=== PATIENT | male | born 1935 | race Caucasian/White ===

== ENCOUNTER 2021-01-20 12:03 | Observation (INO) | payer MEDICARE, SELFPAY ==
[2021-01-20 12:03] VITALS: BP 130/70; PULSE 101; RESP 16; TEMP 36.2; O2SAT 97; BMI 38.6
--- NOTE | 2021-01-20 12:16 | CM.ED ---
SW Note SW received call Raymundo Mariscal from [facility] in [place]. Raymundo said that patient is being treated for CDiff and MRSA. He reports that they can not do IV antibiotics. Raymundo said that patient will need to go somewhere like [place] for the longterm antibiotics. Niece, Neema Thompson resides in [place]. Niece phone number [phone] and [phone]. Stephenie CONNOR
--- NOTE | 2021-01-20 12:44 | ED.VIS.GI ---
HPI HPI - GI History of Present Illness Chief Complaint: Diarrhea Informant: patient and SNF Abdominal Pain/Flank Pain Onset: Days Context: Gradual Onset Timing: Intermittent Current Severity: Mild Maximum Severity: Mild Nausea/Vomiting/Emesis GI Symptom: Negative for Nausea and Vomiting Diarrhea/Melena/Hematochezia GI Symptom: Positive for Diarrhea; Negative for Melena and Hematochezia Onset: Days Stool Quality: Positive for Loose Severity: Mild Associated Symptoms Associated Symptoms: Negative for Dysuria and Frequency Narrative Narrative: 85-year-old male from an assisted living facility. According to the paperwork patient was recently admitted to [facility]. Was discharged back to her facility. Was having diarrhea and was eventually diagnosed with C. difficile. He was then recently taken back to [facility] emergency department was treated with IV fluids and placed on oral vancomycin. The assisted living facility does not feel that they can care for him and according to them the family wants the patient to be seen in a different facility than [facility] that is why was sent here today. Reportedly the assisted living facility called our psychiatric social worker supervisor discussed with her that they did not feel comfortable caring for him and thought he would need higher level of placement in a different facility Prior similar symptoms: Yes Recent Illness/Hospitalization: Yes PFSH PFSH Medical History BPH (benign prostatic hyperplasia) Diabetes HTN (hypertension) Allergy/AdvReac Type Severity Reaction Status Date / Time codeine Allergy PT UNSURE Verified 01/20/21 12:12 OF REACTION Social History Smoking Status: Never smoker ROS ROS ED ROS Narrative Diarrhea. Review of Systems ROS Unobtainable: Denies due to encephalopathy Constitutional Constitutional ED: Denies fever(s) or subjective ENT ENT ED: Denies ear pain or sore throat Cardiovascular Cardiovascular: Denies chest pain or palpitations Respiratory/Chest Respiratory/Chest: Denies cough or dyspnea Gastrointestinal Gastrointestinal: Reports diarrhea; Denies abdominal pain, nausea or vomiting Genitourinary Genitourinary ED: Denies dysuria or hematuria Musculoskeletal Musculoskeletal: Denies arthralgias or myalgias Integumentary Denies abscess or rash Neurologic Neurologic: Denies headache(s) Psychiatric Psychiatric: Denies depression Endocrine Endocrinology: Denies polyuria Hematologic/Lymphatic Hematologic/Lymphatic: Denies easy bruising Allergic/Immunologic Allergic/Immunologic ED: Denies urticaria EXAM Physical Exam Narrative Exam Narrative: 85-year-old male no acute distress currently he is sitting on the toilet when I walk in the room. He denies any complaints. H EENT exam unremarkable. Moist remembers. Neck nontender. Lungs clear to auscultation. Heart regular rhythm rate about 100. Abdomen soft nontender normal bowel sounds no peritoneal signs. Obese. Moving all 4 extremities. No edema. Neurologically is awake and alert. Answering questions following commands. Const Vital Signs: 01/20/21 12:03 01/20/21 13:22 01/20/21 14:24 Temperature 97.2 F L 97.5 F L 99.2 F H Temperature Source Oral Temporal Oral Pulse Rate 101 H 73 77 Respiratory Rate 16 24 H 18 Blood Pressure 130/70 H 126/104 H 110/51 L Blood Pressure Mean 90 111 70 Pulse Ox 97 97 97 Oxygen Delivery Method Nasal Cannula Nasal Cannula Room Air Oxygen Flow Rate (L/min) 2 2 Positive well nourished, well developed and obese; Negative for cachectic, contractures or unkempt General Appearance ED: well developed and NAD; Negative for unkempt, cachectic, contractures or pallor Nutritional Appearance: obese; Negative for cachectic HEENT Reports moist mucous membranes normocephalic and atraumatic; Negative for trauma or tenderness Eyes PERRL and EOMs intact bilaterally General Eye ED: Negative for pale conjunctiva or scleral icterus Neck no lymphadenopathy, supple and no JVD General: Negative for tenderness Resp normal respiratory effort and clear to auscultation bilaterally Auscultation: Negative for rales, rhonchi or wheezes Cardio regular rate, regular rhythm, S1 normal heart sound, S2 normal heart sound and no murmurs GI non-tender, non-distended and no masses Auscultation: normoactive bowel sounds Palpation: soft; Negative for tender, guarding or rigid Back/Spine no CVA tenderness General Back: Negative for CVA tenderness Cervical Spine: Negative for cervical spine tenderness Extremity full ROM General Extremety ED: Negative for edema or tenderness General Extremity: Negative for edema Neuro moves all extremities Sensorium / Orientation: alert, oriented to person, oriented to place and oriented to time; Negative for orientation impaired, confused, lethargic or stuporous Motor Exam: strength 5/5 throughout Psych mental status grossly normal Appearance: Negative for unkempt Skin no wounds General Skin Exam: Negative for jaundice or pallor Lesions: no lesions Rashes: no rashes MDM MDM MDM Narrative Medical decision making narrative: Elderly male recent C. difficile sent in from assisted living facility for further evaluation and admission. Patient be treated with IV fluids. Screening labs are being obtained. Repeat exam unchanged at 3:35 PM. The hospitalist is on page. Lab Data Attestation: I reviewed the patient's lab results. Lab results narrative: CBC shows a white count of 15.7 hemoglobin of 11. Platelet count of 259. Electrolytes show a gap of 7 BUN of 36 creatinine 1.77. We do not have a recent creatinine to compare that to. The hemoglobin is baseline. Labs: Laboratory Results - last 24 hr 01/20/21 01/20/21 13:15 13:15 WBC 15.7 H RBC 3.57 L Hgb 11.0 L Hct 33.2 L MCV 93.0 MCH 30.8 MCHC 33.1 RDW Std Deviation 59.8 H RDW Coeff of Trina 17.2 H Plt Count 259 MPV 10.6 Immature Gran % (Auto) 1.700 H Neut % (Auto) 87.0 H Lymph % (Auto) 4.0 L [place] % (Auto) 6.5 Eos % (Auto) 0.5 Baso % (Auto) 0.3 Absolute Neuts (auto) 13.7 H Absolute Lymphs (auto) 0.62 L Nucleated RBC % 0 Sodium 135 L Potassium 4.6 Chloride 105 Carbon Dioxide 23.0 Anion Gap 7 BUN 36 H Creatinine 1.77 H Estim Creat Clear Calc 34.71 Est GFR (MDRD) Af Amer 47 L Est GFR (MDRD) Non-Af 39 L BUN/Creatinine Ratio 20.3 H Glucose 161 H Calcium 8.2 L Total Bilirubin 0.50 AST 25 ALT 13 L Alkaline Phosphatase 138 H Total Protein 5.5 L Albumin 1.6 L Globulin 3.9 Albumin/Globulin Ratio 0.4 L Discharge Plan Triage Chief Complaint: Diarrhea ED Provider: Abdias Cr Dx/Rx/DC Orders Clinical Impression: C. difficile diarrhea, Acute kidney injury, History of atrial fibrillation, History of diabetes mellitus Primary Care Provider: Dangelo Yadav Referrals: Dangelo Yadav MD [Primary Care Provider] - Disposition Disposition: Acute Care Hospital [facility]
[2021-01-20] MEDS: 0.9% Normal Saline 1,000 ML 999 ML IV (13:20)
[2021-01-20 13:22] VITALS: BP 126/104; PULSE 73; RESP 24; TEMP 36.4; O2SAT 97
[2021-01-20 13:29] LABS: Absolute Lymphocyte Count 0.62 X10^3/uL (0.83-4.51); Absolute Neutrophil Count 13.7 X10^3/uL (2.0-7.7); Basophil# 0.04 X10^3/uL; Basophil% 0.3 % (0-1); Eosinophil# 0.08 X10^3/uL; Eosinophils% 0.5 % (0-5); Hematocrit 33.2 % (40-54); Lymphocyte # 0.62 X10^3/ul (0.83-4.51); Mean Corp Hgb Conc 33.1 g/dL (32-36); Mean Corpuscular Hgb 30.8 pg (27.0-32.0); Mean Platelet Vol. 10.6 fl (6.2-12.0); Monocyte# 1.02 X10^3/uL; Monocyte% 6.5 % (0-10); NRBC Flagged by Analyzer 0 % (0-5); Neutrophil # 13.65 X10^3/uL (2.7-7.7); Platelet Count 259 K/mm3 (150-450); RBC Distribution Width CV 17.2 % (11.6-14.6); RBC Distribution Width SD 59.8 fl (35.1-43.9); Red Blood Count 3.57 M/mm3 (4.6-6.2); White Blood Count 15.7 K/mm3 (4.4-11.0)
[2021-01-20 13:44] LABS: ALB/GLOB Ratio 0.4 RATIO (0.9-2.4); AST(SGOT) 25 U/L (15-37); Alanine Aminotransfer ALT/SGPT 13 U/L (16-61); Albumin, Serum 1.6 g/dL (3.2-5.0); Alkaline Phosphatase 138 U/L (45-117); Anion Gap 7 (5-15); BUN 36 mg/dL (7-18); BUN/Creat Ratio 20.3 RATIO (10-20); Calcium,Total 8.2 mg/dL (8.5-10.1); Chloride 105 mmol/L (98-107); Creatinine, Serum 1.77 mg/dL (0.70-1.30); EST Glomerular Filtration Rate 39 mL/min (>60); Est Glom Filt Rate - Afr Amer 47 mL/min (>60); Estimated Creatinine Clearance 34.71 ml/min; Globulin 3.9 g/dL (2.2-4.2); Glucose 161 mg/dL (74-106); Potassium 4.6 mmol/L (3.5-5.1); Protein, Total 5.5 g/dL (6.4-8.2); Sodium Level 135 mmol/L (136-145)
[2021-01-20 14:24] VITALS: BP 110/51; PULSE 77; RESP 18; TEMP 37.3; O2SAT 97
--- NOTE | 2021-01-20 16:23 | PCM.HP.STD ---
Documented by User: SILVIANO León 01/20/21 16:50 HPI - General General Date of Admission: 01/20/21 Date of Service: 01/20/21 Chief Complaint: Diarrhea, weakness HPI Narrative AYAN SANTANA, is a 85 M who presents with complaints of increased weakness and continued diarrhea. Patient was diagnosed with MRSA in his urine on December 20 and was subsequently treated with antibiotics. Shortly after initiating antibiotic therapy for his MRSA infection patient began to have diarrhea. On January 17 patient was diagnosed with C. difficile and began treatment with vancomycin. Patient is having considerable weakness and assisted living is no longer able to provide care for him at this time. She was initially treated at [facility] but family wanted him sent to [place] for second opinion. Patient also has history of CHF, hyperlipidemia, atrial fibrillation and gout [facility] Medical History BPH (benign prostatic hyperplasia) Diabetes HTN (hypertension) Home Medications allopurinol 300 mg PO DAILY 01/20/21 [History Last Taken 01/20/21] aspirin [Aspirin Low Dose] 81 mg PO DAILY@0800 01/20/21 [History Last Taken 01/20/21] atorvastatin 40 mg PO QHS@2100 01/20/21 [History Last Taken 01/19/21] bumetanide 1 mg PO BID 01/20/21 [History Last Taken 01/20/21] calcitriol 0.25 mcg PO DAILY 01/20/21 [History Last Taken 01/20/21] doxazosin 2 mg PO QHS@2100 01/20/21 [History Last Taken 01/19/21] ergocalciferol (vitamin D2) 1,250 mcg PO TU 01/20/21 [History Last Taken 01/20/21] ferrous sulfate 325 mg PO DAILY@1500 01/20/21 [History Last Taken 01/19/21] guaifenesin [Mucus Relief] 400 mg PO BID 01/20/21 [History Last Taken 01/20/21] magnesium oxide 400 mg PO DAILY 01/20/21 [History Last Taken 01/20/21] metoprolol succinate 25 mg PO DAILY 01/20/21 [History Last Taken 01/20/21] potassium chloride 40 meq PO BID 01/20/21 [History Last Taken 01/20/21] vancomycin 125 mg PO 4X/DAY 01/20/21 [History Last Taken 01/20/21] warfarin 4 mg PO SUMOWEFRSA 01/20/21 [History Last Taken 01/19/21] warfarin 6 mg PO TUTH 01/20/21 [History Last Taken 01/15/21] Allergy/AdvReac Type Severity Reaction Status Date / Time codeine Allergy PT UNSURE Verified 01/20/21 12:12 OF REACTION Social History (Updated 01/20/21 @ 16:25 by Zainab Gongora NP-C) Smoking Status: Never smoker alcohol intake: never substance use type: does not use ROS Constitutional Constitutional: Reports weakness; Denies anorexia, chills, fatigue, fever(s) or malaise Cardiovascular Cardiovascular: Denies chest pain, edema, palpitations or syncope Respiratory/Chest Respiratory/Chest: Denies cough, hemoptysis, shortness of breath at rest, shortness of breath with exertion or wheezing Gastrointestinal Gastrointestinal: Reports diarrhea; Denies abdominal pain, constipation, nausea or vomiting Genitourinary Genitourinary: Denies dysuria Musculoskeletal Musculoskeletal: Denies back pain, extremity pain, joint pain or joint stiffness Integumentary Integumentary: Denies dry skin Neurologic Neurologic: Denies abnormal gait, abnormal speech, confusion or dizziness Psychiatric Psychiatric: Denies anxiety or depression Endocrine Endocrinology: Denies change in body appearance Hematologic/Lymphatic Hematologic/Lymphatic: Denies anemia Vital Signs Vital Signs Vital Signs: 01/20/21 12:03 01/20/21 13:22 01/20/21 14:24 Temperature 97.2 F L 97.5 F L 99.2 F H Temperature Source Oral Temporal Oral Pulse Rate 101 H 73 77 Respiratory Rate 16 24 H 18 Blood Pressure 130/70 H 126/104 H 110/51 L Blood Pressure Mean 90 111 70 Pulse Ox 97 97 97 Oxygen Delivery Method Nasal Cannula Nasal Cannula Room Air Oxygen Flow Rate (L/min) 2 2 Weight Weight: 284 lb 14.4 oz Body Mass Index (BMI) 38.6 Physical Exam Const alert, oriented x3 and no apparent distress General Appearance: cooperative HEENT normocephalic and head/scalp atraumatic Eyes conjunctivae normal and no scleral icterus Neck full ROM and supple General: trachea midline Resp normal respiratory effort, normal air movement and clear to auscultation bilaterally Cardio regular rate, S1 normal heart sound, S2 normal heart sound and peripheral pulses 2+ throughout GI soft to palpation, non-tender and non-distended Auscultation: hyperactive bowel sounds Extremity normal capillary refill and no clubbing, cyanosis or edema General Extremity: no tenderness to palpation of joints or extremities Skin General Skin Exam: no breakdown and turgor normal Lesions: no lesions Rashes: no rashes Neuro no focal motor deficits and no sensory deficits noted Speech: speech normal Motor Exam: general weakness Psych thought process normal, cooperative and affect normal Appearance: appropriate Results Lab / Micro Data Result Diagrams: 01/20/21 13:15 01/20/21 13:15 Labs: Laboratory Results - last 24 hr 01/20/21 13:15: WBC 15.7 H, RBC 3.57 L, Hgb 11.0 L, Hct 33.2 L, MCV 93.0, MCH 30.8, MCHC 33.1, RDW Std Deviation 59.8 H, RDW Coeff of Trina 17.2 H, Plt Count 259, MPV 10.6, Immature Gran % (Auto) 1.700 H, Neut % (Auto) 87.0 H, Lymph % (Auto) 4.0 L, [place] % (Auto) 6.5, Eos % (Auto) 0.5, Baso % (Auto) 0.3, Absolute Neuts (auto) 13.7 H, Absolute Lymphs (auto) 0.62 L, Nucleated RBC % 0 01/20/21 13:15: Sodium 135 L, Potassium 4.6, Chloride 105, Carbon Dioxide 23.0, Anion Gap 7, BUN 36 H, Creatinine 1.77 H, Estim Creat Clear Calc 34.71, Est GFR (MDRD) Af Amer 47 L, Est GFR (MDRD) Non-Af 39 L, BUN/Creatinine Ratio 20.3 H, Glucose 161 H, Calcium 8.2 L, Total Bilirubin 0.50, AST 25, ALT 13 L, Alkaline Phosphatase 138 H, Total Protein 5.5 L, Albumin 1.6 L, Globulin 3.9, Albumin/Globulin Ratio 0.4 L Assessment & Plan Assessment/Plan (1) C. difficile diarrhea: (2) History of atrial fibrillation: PLAN: 1. C. difficile diarrhea -Admit to [facility] -Continue vancomycin 125 mg p.o. 4 times a day -Normal saline 75 mL/h -C diff precautions ordered 2. Weakness -PT and OT to eval and treat -Case management consulted for assistance with ECF placement 3. Atrial fibrillation -Rate controlled, continue metoprolol and Coumadin -Will obtain PT/INR 4. Chronic kidney disease stage IIIb -Creatinine 1.77, upon review of labs from [facility] consistent with baseline -Daily BMP, will trend Patient will be continued on all other chronic medications related to chronic diseases including BPH, congestive heart failure, hyperlipidemia, gout DVT prophylaxis-chronically anticoagulated This patient was seen by SILVIANO León under the supervision of Dr. Cardona. Documented by User: Dr. Toney Cardona, 01/20/21 17:05 HPI - General General Date of Admission: 01/20/21 [facility] Medical History BPH (benign prostatic hyperplasia) Diabetes HTN (hypertension) Home Medications allopurinol 300 mg PO DAILY 01/20/21 [History Last Taken 01/20/21] aspirin [Aspirin Low Dose] 81 mg PO DAILY@0800 01/20/21 [History Last Taken 01/20/21] atorvastatin 40 mg PO QHS@2100 01/20/21 [History Last Taken 01/19/21] bumetanide 1 mg PO BID 01/20/21 [History Last Taken 01/20/21] calcitriol 0.25 mcg PO DAILY 01/20/21 [History Last Taken 01/20/21] doxazosin 2 mg PO QHS@2100 01/20/21 [History Last Taken 01/19/21] ergocalciferol (vitamin D2) 1,250 mcg PO TU 01/20/21 [History Last Taken 01/20/21] ferrous sulfate 325 mg PO DAILY@1500 01/20/21 [History Last Taken 01/19/21] guaifenesin [Mucus Relief] 400 mg PO BID 01/20/21 [History Last Taken 01/20/21] magnesium oxide 400 mg PO DAILY 01/20/21 [History Last Taken 01/20/21] metoprolol succinate 25 mg PO DAILY 01/20/21 [History Last Taken 01/20/21] potassium chloride 40 meq PO BID 01/20/21 [History Last Taken 01/20/21] vancomycin 125 mg PO 4X/DAY 01/20/21 [History Last Taken 01/20/21] warfarin 4 mg PO SUMOWEFRSA 01/20/21 [History Last Taken 01/19/21] warfarin 6 mg PO TUTH 01/20/21 [History Last Taken 01/15/21] Allergy/AdvReac Type Severity Reaction Status Date / Time codeine Allergy PT UNSURE Verified 01/20/21 12:12 OF REACTION Social History (Updated 01/20/21 @ 16:25 by Zainab Gongora, [employer]-C) Smoking Status: Never smoker alcohol intake: never substance use type: does not use Results Lab / Micro Data Result Diagrams: 01/20/21 13:15 01/20/21 13:15 Charges/Coding Addendum Addendum: Patient was seen and examined independently of Stacie Gongora today, he was sent to the emergency room today at [facility] from an assisted living facility at which she resides due to generalized debility and known C. difficile colitis. Patient has been weak at the facility and is unable to care for himself, the facility states that they are unable to provide further care for him there. On examination he appeared in good health and spirits. Vital signs as documented. Skin warm and dry and without overt rashes. Neck without JVD, neck was supple, trachea midline, thyroid was normal. Lungs clear bilaterally, normal air movement was noted. Heart exam notable for irregular rhythm, normal sounds and absence of murmurs, rubs or gallops. Abdomen unremarkable and without evidence of organomegaly, masses, or abdominal aortic enlargement. Bowel sounds are present, abdomen is not distended. Extremities nonedematous, no cyanosis was noted, no clubbing was noted. Neuro: Cranial nerves II through XII are grossly intact, no focal motor deficits were noted, sensation to light touch and pinprick intact, motor exam 5/5 throughout. Psych: Patient is alert and oriented x3, he does not appear anxious or depressed, he does not appear agitated. Patient's white blood cell count is elevated, his creatinine is elevated but it appears that this is his baseline creatinine. Patient will be placed in observation status on MedSurg 3, p.o. vancomycin will be continued for the patient C. difficile colitis, he will be given IV fluids, his home medications will be continued with the exception the Bumex, potassium, and magnesium which I have stopped at this time. Patient will be given IV fluids at 75 cc an hour, repeat labs will be obtained, patient will be seen by PT and OT, he will need placement in a halfway facility. I have reviewed Stacie Gongora's history and physical including her medical assessment and plan of care and endorse it. Visit Charges OBSV E&M: 79866 Initial observation care L3
--- NOTE | 2021-01-20 17:36 | NURSING ---
MED SURG SARITA CDIFF, MARIBELL, LEUKOCYTOSIS
[2021-01-20 18:39] LABS: International Normalized Ratio 4.7; Prothrombin Time (Protime)PT. 43.5 SECONDS (11.7-14.9)
[2021-01-20 19:02] VITALS: BP 110/51; PULSE 77; RESP 18; TEMP 37.3; O2SAT 97
[2021-01-20 20:07] VITALS: BP 119/70; PULSE 79; RESP 18; TEMP 36.6; O2SAT 100; BMI 36.3
[2021-01-20] MEDS: 0.9% Normal Saline 1,000 ML 75 ML IV (23:16)
[2021-01-20] MEDS: Atorvastatin Calcium 40 MG Tablet PO (23:17)
[2021-01-20] MEDS: Vancomycin 125 MG/5 ML Susp PO.SYRINGE PO (23:17)
[2021-01-20 23:20] VITALS: BP 116/55; PULSE 85; RESP 18; TEMP 36.8; O2SAT 99
--- NOTE | 2021-01-20 23:28 | PCS.PANDOC ---
PANDEMIC DOCUMENTATION INITIATED: Date: 10/27/2020 Time: 190
--- NOTE | 2021-01-20 23:28 | NURSING ---
pt cannot recall vaccine dates but states that he received both covid vaccines. states [facility] all that information
[2021-01-21 06:00] VITALS: BP 112/65; PULSE 80; RESP 16; TEMP 36.8; O2SAT 95
[2021-01-21 07:20] LABS: Absolute Lymphocyte Count 0.62 X10^3/uL (0.83-4.51); Absolute Neutrophil Count 10.3 X10^3/uL (2.0-7.7); Basophil# 0.03 X10^3/uL; Basophil% 0.2 % (0-1); Eosinophil# 0.16 X10^3/uL; Eosinophils% 1.3 % (0-5); Hematocrit 31.1 % (40-54); Hemoglobin 10.1 g/dL (13.0-16.5); Lymphocyte # 0.62 X10^3/ul (0.83-4.51); Mean Corp Hgb Conc 32.5 g/dL (32-36); Mean Corpuscular Hgb 30.2 pg (27.0-32.0); Mean Corpuscular Volume 93.1 fL (80-94); Mean Platelet Vol. 12.3 fl (6.2-12.0); Monocyte# 0.81 X10^3/uL; Monocyte% 6.6 % (0-10); NRBC Flagged by Analyzer 0 % (0-5); Neutrophil # 10.34 X10^3/uL (2.7-7.7); Neutrophil % 84.3 % (47-70); Platelet Count 166 K/mm3 (150-450); RBC Distribution Width CV 17.1 % (11.6-14.6); RBC Distribution Width SD 59.2 fl (35.1-43.9); Red Blood Count 3.34 M/mm3 (4.6-6.2); White Blood Count 12.3 K/mm3 (4.4-11.0)
[2021-01-21 07:46] LABS: Anion Gap 6 (5-15); BUN 32 mg/dL (7-18); BUN/Creat Ratio 22.4 RATIO (10-20); Calcium,Total 7.8 mg/dL (8.5-10.1); Chloride 107 mmol/L (98-107); Creatinine, Serum 1.43 mg/dL (0.70-1.30); EST Glomerular Filtration Rate 50 mL/min (>60); Est Glom Filt Rate - Afr Amer 61 mL/min (>60); Estimated Creatinine Clearance 42.96 ml/min; Glucose 139 mg/dL (74-106); Potassium 4.3 mmol/L (3.5-5.1); Sodium Level 136 mmol/L (136-145)
[2021-01-21] MEDS: Calcitriol 0.25 MCG Capsule PO (09:04)
[2021-01-21] MEDS: Allopurinol 300 MG Tablet PO (09:04)
[2021-01-21] MEDS: Aspirin E.C. 81 MG Tablet PO (09:04)
[2021-01-21] MEDS: Menthol/Lanolin/Calamine/Znox 113 GM Tube 1 APPLIC TOPICAL ×4 (09:04→22:59)
[2021-01-21 09:14] VITALS: PULSE 86
[2021-01-21] MEDS: Metoprolol(XL)Succ 25 MG Tablet PO (09:14)
[2021-01-21 09:45] VITALS: BP 138/77; PULSE 86; RESP 18; TEMP 36.7; O2SAT 96
[2021-01-21] MEDS: Vancomycin 125 MG/5 ML Susp PO.SYRINGE PO ×4 (10:08→22:59)
--- NOTE | 2021-01-21 10:21 | PCM.PN.HOSP ---
Documented by User: Zainab Gongora NP-C 01/21/21 10:29 Subjective Subjective Patient seen and examined. Patient sitting in chair no distress noted. Patient states that he is feeling slightly better than last night when I evaluated him in the ER. Objective Data Objective Data Vital Signs: Vital Signs Temp Pulse Resp BP Pulse Ox 98.2 F 86 16 112/65 95 01/21/21 06:00 01/21/21 09:14 01/21/21 06:00 01/21/21 06:00 01/21/21 06:00 Oxygen Flow Rate (L/min) 2 Oxygen Delivery Method Room Air Weight: 268 lb 1.6 oz Body Mass Index (BMI) 36.3 Intake & Output: Intake and Output for Last 24 Hours 01/19/21 01/20/21 01/21/21 23:59 23:59 23:59 Intake Total 1000 / 1000 50 / 50 Balance 1000 / 1000 50 / 50 Lab / Micro Data Result Diagrams: 01/21/21 07:00 01/21/21 07:00 Labs: Laboratory Results - last 24 hr 01/20/21 13:15: WBC 15.7 H, RBC 3.57 L, Hgb 11.0 L, Hct 33.2 L, MCV 93.0, MCH 30.8, MCHC 33.1, RDW Std Deviation 59.8 H, RDW Coeff of Trina 17.2 H, Plt Count 259, MPV 10.6, Immature Gran % (Auto) 1.700 H, Neut % (Auto) 87.0 H, Lymph % (Auto) 4.0 L, [place] % (Auto) 6.5, Eos % (Auto) 0.5, Baso % (Auto) 0.3, Absolute Neuts (auto) 13.7 H, Absolute Lymphs (auto) 0.62 L, Nucleated RBC % 0 01/20/21 13:15: Sodium 135 L, Potassium 4.6, Chloride 105, Carbon Dioxide 23.0, Anion Gap 7, BUN 36 H, Creatinine 1.77 H, Estim Creat Clear Calc 34.71, Est GFR (MDRD) Af Amer 47 L, Est GFR (MDRD) Non-Af 39 L, BUN/Creatinine Ratio 20.3 H, Glucose 161 H, Calcium 8.2 L, Total Bilirubin 0.50, AST 25, ALT 13 L, Alkaline Phosphatase 138 H, Total Protein 5.5 L, Albumin 1.6 L, Globulin 3.9, Albumin/Globulin Ratio 0.4 L 01/20/21 18:11: PT 43.5 H, INR 4.7 H* 01/21/21 07:00: WBC 12.3 H, RBC 3.34 L, Hgb 10.1 L, Hct 31.1 L, MCV 93.1, MCH 30.2, MCHC 32.5, RDW Std Deviation 59.2 H, RDW Coeff of Trina 17.1 H, Plt Count 166, MPV 12.3 H, Immature Gran % (Auto) 2.600 H, Neut % (Auto) 84.3 H, Lymph % (Auto) 5.0 L, [place] % (Auto) 6.6, Eos % (Auto) 1.3, Baso % (Auto) 0.2, Absolute Neuts (auto) 10.3 H, Absolute Lymphs (auto) 0.62 L, Nucleated RBC % 0 01/21/21 07:00: Sodium 136, Potassium 4.3, Chloride 107, Carbon Dioxide 23.0, Anion Gap 6, BUN 32 H, Creatinine 1.43 H, Estim Creat Clear Calc 42.96, Est GFR (MDRD) Af Amer 61, Est GFR (MDRD) Non-Af 50 L, BUN/Creatinine Ratio 22.4 H, Glucose 139 H, Calcium 7.8 L Physical Exam Const alert, oriented x3 and no apparent distress General Appearance: cooperative HEENT normocephalic and head/scalp atraumatic Eyes conjunctivae normal and no scleral icterus Neck full ROM and supple General: trachea midline Resp normal respiratory effort, normal air movement and clear to auscultation bilaterally Cardio regular rate, S1 normal heart sound, S2 normal heart sound and peripheral pulses 2+ throughout GI soft to palpation, non-tender and non-distended Auscultation: hyperactive bowel sounds Extremity normal capillary refill and no clubbing, cyanosis or edema General Extremity: no tenderness to palpation of joints or extremities Skin General Skin Exam: no breakdown and turgor normal Lesions: no lesions Rashes: no rashes Neuro no focal motor deficits and no sensory deficits noted Speech: speech normal Motor Exam: general weakness Psych thought process normal, cooperative and affect normal Appearance: appropriate Assessment & Plan Assessment/Plan (1) C. difficile diarrhea: (2) History of atrial fibrillation: PLAN: 1. C. difficile diarrhea -Continue vancomycin 125 mg p.o. 4 times a day, white blood cell count improved from yesterday -Normal saline 75 mL/h -C diff precautions ordered 2. Weakness -PT and OT to eval and treat -Case management consulted for assistance with ECF placement 3. Atrial fibrillation -Rate controlled, continue metoprolol -We will hold Coumadin as patient's current INR is 4.7 -Will obtain PT/INR daily 4. Chronic kidney disease stage IIIb -Creatinine 1.43, improved -Daily BMP, will trend Patient will be continued on all other chronic medications related to chronic diseases including BPH, congestive heart failure, hyperlipidemia, gout DVT prophylaxis-chronically anticoagulated This patient was seen by SILVIANO León under the supervision of Dr. Presley. Documented by User: Dr. Brandt Presley MD 01/21/21 13:40 Objective Data Lab / Micro Data Result Diagrams: 01/21/21 07:00 01/21/21 07:00 Charges/Coding Addendum Addendum: Dr. Presley: I personally reviewed the chart and examined the patient, and agree with the above findings. 85-year-old male with weakness and inability to complete ADLs at home. He was recently diagnosed with C. difficile diarrhea and has been getting oral vancomycin as well as IV fluids for hydration. He does have a history of A. fib as well chronic kidney disease which are all stable at the moment. We will continue with PT/OT for evaluation and possible placement on discharge. He does state that he feels little bit better today. Visit Charges OBSV E&M: 00134 Subsequent observation care L2
[2021-01-21 11:05] LABS: Prothrombin Time (Protime)PT. 48.4 SECONDS (11.7-14.9)
[2021-01-21 11:16] LABS: International Normalized Ratio 5.4
--- NOTE | 2021-01-21 11:29 | CASEMGMT ---
Social Work Note MIGUEL ANGEL reviewed chart. Pt is from [facility], brought to [facility] as [facility] is unable to care for pt at this time. SW in to speak with pt. SW introduced self and role at [facility]. Pt is alert and orientated x3. Pt confirms that he is from [facility] and has been there since 2018 or 2019. Pt states that he was previously independent with ADLs, states that he has a walker that he uses. Pt states that since his diarrhea he has gotten weaker. SW spoke with pt about discharge plans and how [facility] is stating they cannot provide the care that pt needs. SW spoke with pt about SNF. Patient was provided a list of SNF providers including quality and resource use data and consistent with the patient?s preferred geographic region, medical needs, and insurance network. Pt states he is not sure which SNF he would like. SW asked pt if this worker could call his niece Neema to discuss SNF options. Pt states that Neema is working today and she will not answer. SW informed pt that this worker can still call Neema and leave her a message. SW explained that SNF process needs to be started today. Pt gave this worker permission to call his niece Neema. Pt states that his HCPOA is his niece Neema. Pt states that he is not sure if he has the documents, states that his niece has something. SW placed a call to pt's niece Neema to discuss SNF options. SW verbally provided a list of SNF providers including quality and resource use data and consistent with the patient?s preferred geographic region, medical needs, and insurance network. Neema states that her preferred provider is [facility]. Neema states if [facility] is not able to accept then her second preferred provider is [facility] [place]. Neema states really anywhere in [place], but I would like to stay away from [facility]. SW informed Neema that this worker will check with pt and update him on her choices and then this worker will send referrals out to SNFs. Neema states understanding. SW back in to speak with pt. SW informed pt that this worker called Neema and she answered. Pt states I forgot today she is working from home. SW informed pt that Neema's first choice for SNF is [facility]. Pt agreeable to referral being sent to [facility]. MIGUEL ANGEL placed a call to Alicia at [facility] and provided referral. SW faxed referral to [facility]. Plan: SNF pending acceptance and pre-cert Mere Arnett LINK AND LINK KNITTING MACHINE OPERATOR, OUTSIDE MACHINIST SUPERVISOR
[2021-01-21] MEDS: 0.9% Normal Saline 1,000 ML 75 ML IV ×2 (13:15→23:00)
--- NOTE | 2021-01-21 14:58 | CASEMGMT ---
ROLAN JOY in to discuss MAHONEY form with patient. RN CM explained MAHONEY form, patient voiced understanding. Pt declined to sign form, filed in chart. Pt provided with a copy of unsigned MAHONEY form. Patient had no further questions or concerns at this time.
--- NOTE | 2021-01-21 15:01 | CHAPLAIN ---
Type of Pastoral Visit _x__ Initial Visit ___ Follow-up Visit ___ On-call Visit ___ General Patient Visit ___ Spiritual Assessment ___ Family Conference ___ Bereavement ___ Rapid Response ___ Code Blue ___ Other (describe below) Pastoral Care Referral From _x__ Patient ___ Family ___ Nurse ___ Physician ___ Bridge Carpenter ___ Wort Extractor ___ Other (describe below) Sacrament/Intervention _x__ Active listening ___ Anointing ___ Lutheran ___ Bereavement ___ Communion _x__ Nalini exploration ___ ___ Life review _x__ Prayer ___ Reconciliation ___ Sacrament of Sick _x__ Supportive presence ___ Wedding ___ Other (describe below) Pastoral Comments patient is looking out window, sitting in his chair; pt states that I'm just getting old when asked about health; pt says I was fine until this hit me; pt is unsure about future but does not present this as a concern; pt is of the [employer] nalini and welcomes prayer and presence of quality control technician;
[2021-01-21] MEDS: Ferrous Sulfate 325 MG Tablet PO (15:03)
[2021-01-21 15:05] VITALS: BP 123/64; PULSE 89; RESP 16; TEMP 36.7; O2SAT 94
[2021-01-21 22:54] VITALS: BP 112/92; PULSE 83; RESP 18; TEMP 36.8; O2SAT 94
[2021-01-21] MEDS: Doxazosin 1 MG Tablet 2 MG PO (22:58)
[2021-01-21] MEDS: Atorvastatin Calcium 40 MG Tablet PO (22:58)
[2021-01-22 04:42] VITALS: BP 102/56; PULSE 92; RESP 18; TEMP 36.7; O2SAT 96
[2021-01-22 07:03] LABS: Absolute Lymphocyte Count 0.59 X10^3/uL (0.83-4.51); Absolute Neutrophil Count 10.1 X10^3/uL (2.0-7.7); Basophil# 0.04 X10^3/uL; Basophil% 0.3 % (0-1); Eosinophil# 0.11 X10^3/uL; Eosinophils% 0.9 % (0-5); Hemoglobin 9.6 g/dL (13.0-16.5); Lymphocyte # 0.59 X10^3/ul (0.83-4.51); Lymphocyte % 4.9 % (19-41); Mean Corpuscular Hgb 30.2 pg (27.0-32.0); Mean Corpuscular Volume 94.3 fL (80-94); Mean Platelet Vol. 12.3 fl (6.2-12.0); Monocyte# 0.86 X10^3/uL; Monocyte% 7.1 % (0-10); NRBC Flagged by Analyzer 0.2 % (0-5); Neutrophil # 10.09 X10^3/uL (2.7-7.7); Neutrophil % 83.8 % (47-70); POSITIVE DIFFERENTIAL YES; Platelet Count 153 K/mm3 (150-450); RBC Distribution Width SD 58.9 fl (35.1-43.9); Red Blood Count 3.18 M/mm3 (4.6-6.2); White Blood Count 12.1 K/mm3 (4.4-11.0)
[2021-01-22 07:10] LABS: Differential Indicated SCAN CRITERIA MET
[2021-01-22 07:27] LABS: Prothrombin Time (Protime)PT. 43.9 SECONDS (11.7-14.9)
[2021-01-22 07:36] LABS: ALB/GLOB Ratio 0.4 RATIO (0.9-2.4); AST(SGOT) 19 U/L (15-37); Alanine Aminotransfer ALT/SGPT 10 U/L (16-61); Albumin, Serum 1.4 g/dL (3.2-5.0); Alkaline Phosphatase 100 U/L (45-117); Anion Gap 6 (5-15); BUN 27 mg/dL (7-18); BUN/Creat Ratio 20.6 RATIO (10-20); Calcium,Total 7.3 mg/dL (8.5-10.1); Chloride 108 mmol/L (98-107); Creatinine, Serum 1.31 mg/dL (0.70-1.30); EST Glomerular Filtration Rate 56 mL/min (>60); Est Glom Filt Rate - Afr Amer 67 mL/min (>60); Globulin 3.2 g/dL (2.2-4.2); Glucose 146 mg/dL (74-106); Potassium 4.1 mmol/L (3.5-5.1); Protein, Total 4.6 g/dL (6.4-8.2); Sodium Level 136 mmol/L (136-145)
[2021-01-22 07:41] LABS: International Normalized Ratio 4.8
[2021-01-22 08:29] VITALS: O2SAT 97
[2021-01-22 09:00] VITALS: BP 117/63; PULSE 81; RESP 18; TEMP 36.7; O2SAT 96
--- NOTE | 2021-01-22 09:02 | CASEMGMT ---
Addendum entered by Mere Arnett 01/22/21 09:25: MIGUEL ANGEL received call from [facility] stating [facility] is able to accept pt and they started pre-cert yesterday. MIGUEL ANGEL informed [facility] that pt is medically ready for discharge once pre-cert is obtained. Original Note: Social Work Note MIGUEL ANGEL placed a call to Alicia at [facility] and left message regarding referral. Plan: [facility] pending acceptance and pre-cert Mere Arnett PATIENT COORDINATOR FRONT DESK, CHEESE SPECIALIST
[2021-01-22 09:31] VITALS: PULSE 81
[2021-01-22] MEDS: Calcitriol 0.25 MCG Capsule PO (09:31)
[2021-01-22] MEDS: Metoprolol(XL)Succ 25 MG Tablet PO (09:31)
[2021-01-22] MEDS: Aspirin E.C. 81 MG Tablet PO (09:31)
[2021-01-22] MEDS: Allopurinol 300 MG Tablet PO (09:32)
[2021-01-22] MEDS: Vancomycin 125 MG/5 ML Susp PO.SYRINGE PO ×4 (09:32→21:09)
--- NOTE | 2021-01-22 12:34 | CASEMGMT ---
Addendum entered by Mere rAnett 01/22/21 17:49: MIGUEL ANGEL received message from Alicia at [facility] stating pre-cert is still pending, she is anticipating getting pre-cert tomorrow. Alicia states she spoke with pt's insurance today who confirms they received referral and are working on pre-cert. Plan: [facility] pending pre-cert Original Note: Social Work Note SW in to speak with pt. MIGUEL ANGEL informed pt that [facility] has accepted pt pending pre-cert. Pt states understanding. MIGUEL ANGEL placed a call to pt's niece Neema and updated her that [facility] has accepted pt pending pre-cert. Neema states understanding. Plan: [facility] pending pre-cert Mere Arnett AGED OR DISABLED CARER, TODDLER TEACHER
--- NOTE | 2021-01-22 13:08 | PCM.PN.HOSP ---
Documented by User: Raymundo BRADSHAW 01/22/21 13:18 Subjective Subjective Patient is a 85-year-old male comfortably resting in chair, alert and orient x3. Patient reports that diarrhea and abdominal pain has improved from admission. Denies development of any new symptoms overnight. Objective Data Objective Data Vital Signs: Vital Signs Temp Pulse Resp BP Pulse Ox 98.0 F 81 18 117/63 96 01/22/21 09:00 01/22/21 09:31 01/22/21 09:00 01/22/21 09:00 01/22/21 09:00 Oxygen Flow Rate (L/min) 2 Oxygen Delivery Method Room Air Weight: 268 lb 1.314 oz Body Mass Index (BMI) 36.3 Intake & Output: Intake and Output for Last 24 Hours 01/20/21 01/21/21 01/22/21 23:59 23:59 23:59 Intake Total 1000 / 1000 2581.25 / 2581.25 Balance 1000 / 1000 2581.25 / 2581.25 Lab / Micro Data Result Diagrams: 01/22/21 06:10 01/22/21 06:10 Labs: Laboratory Results - last 24 hr 01/22/21 06:10: PT 43.9 H, INR 4.8 H* 01/22/21 06:10: WBC 12.1 H, RBC 3.18 L, Hgb 9.6 L, Hct 30.0 L, MCV 94.3 H, MCH 30.2, MCHC 32.0, RDW Std Deviation 58.9 H, RDW Coeff of Trina 17.0 H, Plt Count 153, MPV 12.3 H, Immature Gran % (Auto) 3.000 H, Neut % (Auto) 83.8 H, Lymph % (Auto) 4.9 L, [place] % (Auto) 7.1, Eos % (Auto) 0.9, Baso % (Auto) 0.3, Absolute Neuts (auto) 10.1 H, Absolute Lymphs (auto) 0.59 L, Nucleated RBC % 0.2 01/22/21 06:10: Sodium 136, Potassium 4.1, Chloride 108 H, Carbon Dioxide 22.0, Anion Gap 6, BUN 27 H, Creatinine 1.31 H, Estim Creat Clear Calc 46.90, Est GFR (MDRD) Af Amer 67, Est GFR (MDRD) Non-Af 56 L, BUN/Creatinine Ratio 20.6 H, Glucose 146 H, Calcium 7.3 L, Total Bilirubin 0.60, AST 19, ALT 10 L, Alkaline Phosphatase 100, Total Protein 4.6 L, Albumin 1.4 L, Globulin 3.2, Albumin/Globulin Ratio 0.4 L Physical Exam Const alert, oriented x3 and no apparent distress HEENT head/scalp atraumatic and moist oral mucous membranes Eyes PERRL, EOMs intact bilaterally and conjunctivae normal Neck no lymphadenopathy, supple and no JVD Resp normal respiratory effort, no retractions, no use of accessory muscles and clear to auscultation bilaterally Cardio regular rate, regular rhythm, no murmurs and no JVD GI normal to inspection, nondistended, normoactive bowel sounds, soft to palpation and non-tender Extremity normal to inspection, full ROM and no clubbing, cyanosis or edema Peripheral Pulses: Yes pulses 2+ throughout Skin no rashes or lesions noted, no wounds and skin turgor normal Neuro CN's II-XII intact bilaterally Psych affect normal Assessment & Plan Assessment/Plan (1) C. difficile diarrhea: (2) Acute kidney injury: (3) History of atrial fibrillation: PLAN: Day 2 Discharge planning: Discharge to [facility] pending pre-CERT. 1) C. difficile diarrhea White count continues to improve from admission. Continue vancomycin 125 mg p.o. 4 times daily. Continue Aceta percussions. 2) weakness Patient to discharge to [facility] for ongoing therapy needs. 3) supratherapeutic INR INR currently 4.8, continue to hold patient's Coumadin. Continue to trend PT/INR daily. 4) atrial fibrillation Patient is on metoprolol at home for rate control and on Coumadin for anticoagulation. Continue metoprolol, hold Coumadin as above. 5) CKD stage IIIb Creatinine currently 1.3, and continued to improve from yesterday. Unable to ascertain baseline creatinine. Patient will be continued on all other chronic medications related to chronic diseases including BPH, congestive heart failure, hyperlipidemia, gout DVT prophylaxis -chronically anticoagulated on Coumadin, which is on hold as above. Patient seen by Raymundo Strauss PA-C, under the supervision of Dr. Presley. Documented by User: Dr. Brandt Presley MD 01/22/21 16:44 Objective Data Lab / Micro Data Result Diagrams: 01/22/21 06:10 01/22/21 06:10 Charges/Coding Addendum Addendum: Dr. Presley: I personally reviewed the chart and examined the patient, and agree with the above findings. 85-year-old male with weakness and inability to complete ADLs at home. He was recently diagnosed with C. difficile diarrhea and has been getting oral vancomycin as well as IV fluids for hydration. He does have a history of A. fib as well chronic kidney disease which are all stable at the moment. We will continue with PT/OT for evaluation and possible placement on discharge. He does state that he feels little bit better today. 01/22/2021: Doing well, diarrhea is improving and he denies any abdominal pain. Currently being evaluated by PT and OT for possible placement on discharge. Visit Charges OBSV E&M: 62078 Subsequent observation care L2
[2021-01-22] MEDS: Ferrous Sulfate 325 MG Tablet PO (14:06)
[2021-01-22] MEDS: Menthol/Lanolin/Calamine/Znox 113 GM Tube 1 APPLIC TOPICAL ×3 (14:06→21:08)
[2021-01-22] MEDS: 0.9% Normal Saline 1,000 ML 75 ML IV (14:09)
[2021-01-22 14:19] VITALS: BP 111/42; PULSE 77; RESP 18; TEMP 36.6; O2SAT 98
--- NOTE | 2021-01-22 17:27 | NURSING ---
reviewed documentation by Nelly Veliz, student RN
[2021-01-22 21:05] VITALS: BP 109/55; PULSE 85; RESP 18; TEMP 36.7; O2SAT 95
[2021-01-22] MEDS: Atorvastatin Calcium 40 MG Tablet PO (21:08)
[2021-01-22] MEDS: Doxazosin 1 MG Tablet 2 MG PO (21:09)
[2021-01-23] MEDS: 0.9% Normal Saline 1,000 ML 75 ML IV (03:35)
[2021-01-23 03:36] VITALS: BP 105/44; PULSE 72; RESP 22; TEMP 36.4; O2SAT 97
[2021-01-23 06:30] LABS: Absolute Lymphocyte Count 0.54 X10^3/uL (0.83-4.51); Absolute Neutrophil Count 7.8 X10^3/uL (2.0-7.7); Basophil# 0.04 X10^3/uL; Basophil% 0.4 % (0-1); Eosinophil# 0.21 X10^3/uL; Eosinophils% 2.2 % (0-5); Hematocrit 29.4 % (40-54); Hemoglobin 9.4 g/dL (13.0-16.5); Lymphocyte # 0.54 X10^3/ul (0.83-4.51); Lymphocyte % 5.6 % (19-41); Mean Corpuscular Hgb 30.6 pg (27.0-32.0); Mean Corpuscular Volume 95.8 fL (80-94); Mean Platelet Vol. 12.7 fl (6.2-12.0); Monocyte# 0.78 X10^3/uL; Monocyte% 8.1 % (0-10); NRBC Flagged by Analyzer 0 % (0-5); Neutrophil # 7.83 X10^3/uL (2.7-7.7); POSITIVE DIFFERENTIAL YES; Platelet Count 115 K/mm3 (150-450); RBC Distribution Width CV 17.4 % (11.6-14.6); RBC Distribution Width SD 60.5 fl (35.1-43.9); Red Blood Count 3.07 M/mm3 (4.6-6.2); White Blood Count 9.7 K/mm3 (4.4-11.0)
[2021-01-23 06:33] LABS: Differential Indicated SCAN CRITERIA MET
[2021-01-23 06:38] LABS: Prothrombin Time (Protime)PT. 40.7 SECONDS (11.7-14.9)
[2021-01-23 06:42] LABS: International Normalized Ratio 4.3
[2021-01-23 06:45] LABS: ALB/GLOB Ratio 0.4 RATIO (0.9-2.4); AST(SGOT) 14 U/L (15-37); Alanine Aminotransfer ALT/SGPT 11 U/L (16-61); Albumin, Serum 1.2 g/dL (3.2-5.0); Alkaline Phosphatase 80 U/L (45-117); Anion Gap 7 (5-15); BUN 27 mg/dL (7-18); BUN/Creat Ratio 22.7 RATIO (10-20); Calcium,Total 7.8 mg/dL (8.5-10.1); Chloride 106 mmol/L (98-107); Creatinine, Serum 1.19 mg/dL (0.70-1.30); EST Glomerular Filtration Rate 62 mL/min (>60); Est Glom Filt Rate - Afr Amer 75 mL/min (>60); Estimated Creatinine Clearance 51.62 ml/min; Globulin 3.4 g/dL (2.2-4.2); Glucose 136 mg/dL (74-106); Protein, Total 4.6 g/dL (6.4-8.2); Sodium Level 135 mmol/L (136-145)
[2021-01-23 07:08] LABS: Differential Comment SCANNED
[2021-01-23 08:49] VITALS: PULSE 77
[2021-01-23] MEDS: Metoprolol(XL)Succ 25 MG Tablet PO (08:49)
[2021-01-23] MEDS: Calcitriol 0.25 MCG Capsule PO (08:49)
[2021-01-23] MEDS: Aspirin E.C. 81 MG Tablet PO (08:49)
[2021-01-23 08:50] VITALS: BP 122/82; PULSE 77; RESP 16; TEMP 36.3; O2SAT 97
[2021-01-23] MEDS: Vancomycin 125 MG/5 ML Susp PO.SYRINGE PO ×2 (08:50→14:50)
[2021-01-23] MEDS: Allopurinol 300 MG Tablet PO (08:50)
[2021-01-23] MEDS: Menthol/Lanolin/Calamine/Znox 113 GM Tube 1 APPLIC TOPICAL ×2 (08:52→14:50)
--- NOTE | 2021-01-23 10:37 | CASEMGMT ---
Addendum entered by Mere Arnett 01/23/21 13:48: SW faxed completed discharge paperwork to [facility] including transfer to extended care facility, signed medication list, any scripts, COVID test/tool and PAS/RR to [facility]. Original in SNF folder and copy on pt's chart. SW completed PAS/RR. Original in SNF folder and copy on pt's chart. Pt to transport via wheelchair van. SW accessed trip assist and arranged transportation via wheelchair van at 3:30pm. SW completed transportation form and placed on SNF folder and copy on pt's chart. MIGUEL ANGEL placed a call to Alicia at [facility] and left message updating her on transportation time. MIGUEL ANGEL placed a call to pt's niece Neema and left message updating her on discharge and transportation time. MIGUEL ANGEL updated RN on transportation time. RN to update pt. Plan: [facility] skilled under PAS/RR stay with [facility] transporting pt via wheelchair van at 3:30pm Original Note: Social Work Note SW received message from Alicia at [facility] stating pre-cert was obtained, pt can discharge to [facility] today. Plan: [facility] skilled under PAS/RR stay Mere Arnett VENTILATED RIB FITTER, STREET SPRINKLER
--- NOTE | 2021-01-23 11:33 | TREXTCAR_ITS ---
Documented by User: Raymundo BRADSHAW 01/23/21 12:42 Diet 01/21/21 16:05 Diet: Cardiac - Heart Healthy Food consistency:: Regular Liquid Consistency:: Regular/Thin Therapies Physical Therapy: Eval and Treat Occupational Therapy: Eval and Treat Problem/Diagnosis (1) C. difficile diarrhea: Status: Acute (2) Acute kidney injury: Status: Acute (3) History of atrial fibrillation: Status: Acute Allergies/Procedures Done in Hospital Allergies codeine Allergy (Verified 01/20/21 12:12) PT UNSURE OF REACTION Type of Care/Length of Stay Estimated LOS: Convalescent Care Less Than 30 days Type of Care Needed: Skilled Rehab Potential: Good Prognosis: Good Additional Orders/Day of Discharge Day of Discharge: 01/23/21 Dietary and Speech Recommendations Dietitian Recommendations/Changes: Will change diet to Cardiac. Will d/c ensure compact w/ medpass for now; offer if intake fails at meals. Discharge Plan Admission Admit Date/Time: 01/20/21 16:42 Primary Reason for Your Visit: Diarrhea Attending Provider: Brandt Presley Primary Care Provider: Dangelo Yadav Instructions Additional Instructions / Restrictions: * Hold your Warfarin dose for 2 more days due to your elevated INR. * Obtain repeat PT/INR on 01/26/21 and contact your primary care physician about resuming Warfarin. Discharge Orders/Prescriptions Prescriptions: Continued atorvastatin 40 mg tablet 40 mg PO QHS@2100 RF: 0 aspirin [Aspirin Low Dose] 81 mg Tablet,Delayed Release (Dr/Ec) 81 mg PO DAILY@0800 RF: 0 potassium chloride 20 mEq tablet,ER particles/crystals 40 meq PO BID RF: 0 ferrous sulfate 325 mg (65 mg iron) Tablet 325 mg PO DAILY@1500 RF: 0 bumetanide 1 mg tablet 1 mg PO BID RF: 0 allopurinol 300 mg tablet 300 mg PO DAILY RF: 0 metoprolol succinate 25 mg tablet extended release 24 hr 25 mg PO DAILY RF: 0 ergocalciferol (vitamin D2) 1,250 mcg (50,000 unit) capsule 1,250 mcg PO TU RF: 0 calcitriol 0.25 mcg capsule 0.25 mcg PO DAILY RF: 0 doxazosin 2 mg tablet 2 mg PO QHS@2100 RF: 0 guaifenesin [Mucus Relief] 400 mg Tablet 400 mg PO BID RF: 0 magnesium oxide 400 mg magnesium Tablet 400 mg PO DAILY RF: 0 loperamide 2 mg Capsule 2 mg PO Q6H PRN (Reason: Diarrhea) RF: 0 acetaminophen 500 mg Tablet 500 - 1,000 mg PO Q6H PRN (Reason: Pain) RF: 0 docusate sodium 100 mg Capsule 100 mg PO DAILY RF: 0 vancomycin 125 mg capsule 125 mg PO 4X/DAY Qty: 0 RF: 0 Held warfarin 4 mg tablet 4 mg PO SUMOWEFRSA RF: 0 Hold Instructions: Resume on 01/26/21. warfarin 4 mg tablet 6 mg PO TUTH RF: 0 Hold Instructions: Resume on 01/26/21. Other Ambulatory Orders: Prothrombin Time w/INR (Routine) Timeframe: 2 Days Facility: [facility] - Location: Laboratory Ordered By: Raymundo BRADSHAW Referrals / Follow Up: Dangelo Yadav MD [Primary Care Provider] - Disposition Disposition (needs filled in before D/C Order can be placed): [facility] Facility Documented by User: Dr. Brandt Presley MD 01/23/21 13:06 Allergies/Procedures Done in Hospital Allergies codeine Allergy (Verified 01/20/21 12:12) PT UNSURE OF REACTION Discharge Plan Admission Admit Date/Time: 01/20/21 16:42 Primary Reason for Your Visit: Diarrhea Attending Provider: Brandt Presley Primary Care Provider: Dangelo Yadav Instructions Additional Instructions / Restrictions: * Hold your Warfarin dose for 2 more days due to your elevated INR. * Obtain repeat PT/INR on 01/26/21 and contact your primary care physician about resuming Warfarin. Discharge Orders/Prescriptions Prescriptions: Continued atorvastatin 40 mg tablet 40 mg PO QHS@2100 RF: 0 aspirin [Aspirin Low Dose] 81 mg Tablet,Delayed Release (Dr/Ec) 81 mg PO DAILY@0800 RF: 0 potassium chloride 20 mEq tablet,ER particles/crystals 40 meq PO BID RF: 0 ferrous sulfate 325 mg (65 mg iron) Tablet 325 mg PO DAILY@1500 RF: 0 bumetanide 1 mg tablet 1 mg PO BID RF: 0 allopurinol 300 mg tablet 300 mg PO DAILY RF: 0 metoprolol succinate 25 mg tablet extended release 24 hr 25 mg PO DAILY RF: 0 ergocalciferol (vitamin D2) 1,250 mcg (50,000 unit) capsule 1,250 mcg PO TU RF: 0 calcitriol 0.25 mcg capsule 0.25 mcg PO DAILY RF: 0 doxazosin 2 mg tablet 2 mg PO QHS@2100 RF: 0 guaifenesin [Mucus Relief] 400 mg Tablet 400 mg PO BID RF: 0 magnesium oxide 400 mg magnesium Tablet 400 mg PO DAILY RF: 0 loperamide 2 mg Capsule 2 mg PO Q6H PRN (Reason: Diarrhea) RF: 0 acetaminophen 500 mg Tablet 500 - 1,000 mg PO Q6H PRN (Reason: Pain) RF: 0 docusate sodium 100 mg Capsule 100 mg PO DAILY RF: 0 vancomycin 125 mg capsule 125 mg PO 4X/DAY Qty: 0 RF: 0 Held warfarin 4 mg tablet 4 mg PO SUMOWEFR RF: 0 Hold Instructions: Resume on 01/26/21. warfarin 4 mg tablet 6 mg PO TUTH RF: 0 Hold Instructions: Resume on 01/26/21. Other Ambulatory Orders: Prothrombin Time w/INR (Routine) Timeframe: 2 Days Facility: [facility] - Location: Laboratory Ordered By: Raymundo BRADSHAW Referrals / Follow Up: Dangelo Yadav MD [Primary Care Provider] - Disposition Disposition (needs filled in before D/C Order can be placed): Senior Care Facility
--- NOTE | 2021-01-23 13:42 | DS.PCM_ITS ---
Documented by User: Raymundo BRADSHAW 01/23/21 13:48 Providers Date of Admission: 01/20/21 Primary Care Physician: Dr. Dangelo Yadav MD Reason For Visit: DEBILITY / C DIFF COLITIS Diagnosis Discharge Diagnosis (1) C. difficile diarrhea: Status: Acute Code(s): A04.72 - Enterocolitis due to Clostridium difficile, not specified as recurrent (2) Acute kidney injury: Status: Acute Code(s): N17.9 - Acute kidney failure, unspecified (3) History of atrial fibrillation: Status: Acute Code(s): Z86.79 - Personal history of other diseases of the circulatory system Medications at Discharge Home Medications acetaminophen 500 - 1,000 mg PO Q6H PRN 01/20/21 allopurinol 300 mg PO DAILY 01/20/21 aspirin [Aspirin Low Dose] 81 mg PO DAILY@0800 01/20/21 atorvastatin 40 mg PO QHS@2100 01/20/21 bumetanide 1 mg PO BID 01/20/21 calcitriol 0.25 mcg PO DAILY 01/20/21 docusate sodium 100 mg PO DAILY 01/20/21 doxazosin 2 mg PO QHS@2100 01/20/21 ergocalciferol (vitamin D2) 1,250 mcg PO TU 01/20/21 ferrous sulfate 325 mg PO DAILY@1500 01/20/21 guaifenesin [Mucus Relief] 400 mg PO BID 01/20/21 loperamide 2 mg PO Q6H PRN 01/20/21 magnesium oxide 400 mg PO DAILY 01/20/21 metoprolol succinate 25 mg PO DAILY 01/20/21 potassium chloride 40 meq PO BID 01/20/21 warfarin 4 mg PO SUMOWEFRSA 01/20/21 warfarin 6 mg PO TUTH 01/20/21 vancomycin 125 mg PO 4X/DAY #0 cap 01/23/21 Hospital Course Summary of Care Provided Minutes Spent on Discharge: 35 Hospital Course: Disposition: Patient to be discharged to [facility] for ongoing skilled therapy. 1) C. difficile diarrhea Patient reports that diarrhea has been controlled from admission. Denies development of any new symptoms overnight. Leukocytosis of admission has resolved, WBC is currently at 9000. Other vital signs stable and patient is afebrile. Patient will be continued on vancomycin 125 mg p.o. 4 times daily for 1 more week, discontinue on January 31, 2021 to complete 14-day course. Follow-up with primary care provider within the next 2 weeks. 2) weakness Patient to discharge to [facility] for ongoing therapy needs. 3) supratherapeutic INR INR currently 4.3, continue to hold patient's Coumadin. Obtain a repeat PT/INR on 01/26/2021 and consult PCP for restarting warfarin. 4) atrial fibrillation Patient is on metoprolol at home for rate control and on Coumadin for anticoagulation. Continue metoprolol, hold Coumadin as above. 5) CKD stage IIIb Stable Patient seen by Raymundo Strauss PA-C, under the supervision of Dr. Presley. Physical Exam Narrative comfortably resting in chair, alert and orient x3.Patient is an 85-year-old male. Patient reports that his diarrhea has improved from admission. Denies development of any new symptoms overnight. Does not appear in acute distress. Const alert, oriented x3 and no apparent distress HEENT normocephalic, head/scalp atraumatic and hearing grossly normal bilaterally Eyes PERRL, EOMs intact bilaterally and conjunctivae normal Neck no lymphadenopathy, supple and no JVD Resp normal respiratory effort, no retractions, no use of accessory muscles and clear to auscultation bilaterally Cardio regular rate, regular rhythm, no murmurs and no JVD GI normal to inspection, nondistended, normoactive bowel sounds, soft to palpation and non-tender Extremity normal to inspection, full ROM and no clubbing, cyanosis or edema Skin no rashes or lesions noted, no wounds and skin turgor normal Neuro CN's II-XII intact bilaterally Psych affect normal Weight / BMI Weight Weight: 268 lb 1.314 oz Body Mass Index (BMI) 36.3 ABG / Lab / Microbiology Data Result Diagrams: 01/23/21 05:50 01/23/21 05:50 Laboratory: Laboratory Results - last 24 hr 01/23/21 05:50: PT 40.7 H, INR 4.3 H* 01/23/21 05:50: WBC 9.7, RBC 3.07 L, Hgb 9.4 L, Hct 29.4 L, MCV 95.8 H, MCH 30.6, MCHC 32.0, RDW Std Deviation 60.5 H, RDW Coeff of Trina 17.4 H, Plt Count 115 L, MPV 12.7 H, Immature Gran % (Auto) 2.700 H, Neut % (Auto) 81.0 H, Lymph % (Auto) 5.6 L, [place] % (Auto) 8.1, Eos % (Auto) 2.2, Baso % (Auto) 0.4, Absolute Neuts (auto) 7.8 H, Absolute Lymphs (auto) 0.54 L, Nucleated RBC % 0, Diff erential Comment SCANNED 01/23/21 05:50: Sodium 135 L, Potassium 4.0, Chloride 106, Carbon Dioxide 22.0, Anion Gap 7, BUN 27 H, Creatinine 1.19, Estim Creat Clear Calc 51.62, Est GFR (MDRD) Af Amer 75, Est GFR (MDRD) Non-Af 62, BUN/Creatinine Ratio 22.7 H, Glucose 136 H, Calcium 7.8 L, Total Bilirubin 0.50, AST 14 L, ALT 11 L, Alkaline Phosphatase 80, Total Protein 4.6 L, Albumin 1.2 L, Globulin 3.4, Albumin/Globulin Ratio 0.4 L Microbiology: Microbiology 01/23/21 11:34 Nasal Secretion SARS-CoV-2 Antigen (Rapid) - Final Meaningful Use Info Meaningful Use Diagnoses (Choose all that apply): None applicable Discharge Plan Admission Admit Date/Time: 01/20/21 16:42 Primary Reason for Your Visit: Diarrhea Attending Provider: Brandt Presley Primary Care Provider: Dangelo Yadav Instructions Additional Instructions / Restrictions: * Hold your Warfarin dose for 2 more days due to your elevated INR. * Obtain repeat PT/INR on 01/26/21 and contact your primary care physician about resuming Warfarin. Discharge Orders/Prescriptions Prescriptions: Continued atorvastatin 40 mg tablet 40 mg PO QHS@2100 RF: 0 aspirin [Aspirin Low Dose] 81 mg Tablet,Delayed Release (Dr/Ec) 81 mg PO DAILY@0800 RF: 0 potassium chloride 20 mEq tablet,ER particles/crystals 40 meq PO BID RF: 0 ferrous sulfate 325 mg (65 mg iron) Tablet 325 mg PO DAILY@1500 RF: 0 bumetanide 1 mg tablet 1 mg PO BID RF: 0 allopurinol 300 mg tablet 300 mg PO DAILY RF: 0 metoprolol succinate 25 mg tablet extended release 24 hr 25 mg PO DAILY RF: 0 ergocalciferol (vitamin D2) 1,250 mcg (50,000 unit) capsule 1,250 mcg PO TU RF: 0 calcitriol 0.25 mcg capsule 0.25 mcg PO DAILY RF: 0 doxazosin 2 mg tablet 2 mg PO QHS@2100 RF: 0 guaifenesin [Mucus Relief] 400 mg Tablet 400 mg PO BID RF: 0 magnesium oxide 400 mg magnesium Tablet 400 mg PO DAILY RF: 0 loperamide 2 mg Capsule 2 mg PO Q6H PRN (Reason: Diarrhea) RF: 0 acetaminophen 500 mg Tablet 500 - 1,000 mg PO Q6H PRN (Reason: Pain) RF: 0 docusate sodium 100 mg Capsule 100 mg PO DAILY RF: 0 vancomycin 125 mg capsule 125 mg PO 4X/DAY Qty: 0 RF: 0 Held warfarin 4 mg tablet 4 mg PO SUMOWEFRSA RF: 0 Hold Instructions: Resume on 01/26/21. warfarin 4 mg tablet 6 mg PO TUTH RF: 0 Hold Instructions: Resume on 01/26/21. Other Ambulatory Orders: Prothrombin Time w/INR (Routine) Timeframe: 2 Days Facility: [facility] - Location: Laboratory Ordered By: Raymundo BRADSHAW Referrals / Follow Up: Dangelo Yadav MD [Primary Care Provider] - Disposition Disposition (needs filled in before D/C Order can be placed): [facility] Facility Documented by User: Dr. Brandt Presley MD 01/23/21 15:15 Providers Date of Admission: 01/20/21 Reason For Visit: DEBILITY / C DIFF COLITIS Medications at Discharge Home Medications acetaminophen 500 - 1,000 mg PO Q6H PRN 01/20/21 allopurinol 300 mg PO DAILY 01/20/21 aspirin [Aspirin Low Dose] 81 mg PO DAILY@0800 01/20/21 atorvastatin 40 mg PO QHS@2100 01/20/21 bumetanide 1 mg PO BID 01/20/21 calcitriol 0.25 mcg PO DAILY 01/20/21 docusate sodium 100 mg PO DAILY 01/20/21 doxazosin 2 mg PO QHS@2100 01/20/21 ergocalciferol (vitamin D2) 1,250 mcg PO TU 01/20/21 ferrous sulfate 325 mg PO DAILY@1500 01/20/21 guaifenesin [Mucus Relief] 400 mg PO BID 01/20/21 loperamide 2 mg PO Q6H PRN 01/20/21 magnesium oxide 400 mg PO DAILY 01/20/21 metoprolol succinate 25 mg PO DAILY 01/20/21 potassium chloride 40 meq PO BID 01/20/21 warfarin 4 mg PO SUMOWEFRSA 01/20/21 warfarin 6 mg PO TUTH 01/20/21 vancomycin 125 mg PO 4X/DAY #0 cap 01/23/21 ABG / Lab / Microbiology Data Result Diagrams: 01/23/21 05:50 01/23/21 05:50 Discharge Plan Admission Admit Date/Time: 01/20/21 16:42 Primary Reason for Your Visit: Diarrhea Attending Provider: Brandt Presley Primary Care Provider: Dangelo Yadav Instructions Additional Instructions / Restrictions: * Hold your Warfarin dose for 2 more days due to your elevated INR. * Obtain repeat PT/INR on 01/26/21 and contact your primary care physician about resuming Warfarin. Discharge Orders/Prescriptions Prescriptions: Continued atorvastatin 40 mg tablet 40 mg PO QHS@2100 RF: 0 aspirin [Aspirin Low Dose] 81 mg Tablet,Delayed Release (Dr/Ec) 81 mg PO DAILY@0800 RF: 0 potassium chloride 20 mEq tablet,ER particles/crystals 40 meq PO BID RF: 0 ferrous sulfate 325 mg (65 mg iron) Tablet 325 mg PO DAILY@1500 RF: 0 bumetanide 1 mg tablet 1 mg PO BID RF: 0 allopurinol 300 mg tablet 300 mg PO DAILY RF: 0 metoprolol succinate 25 mg tablet extended release 24 hr 25 mg PO DAILY RF: 0 ergocalciferol (vitamin D2) 1,250 mcg (50,000 unit) capsule 1,250 mcg PO TU RF: 0 calcitriol 0.25 mcg capsule 0.25 mcg PO DAILY RF: 0 doxazosin 2 mg tablet 2 mg PO QHS@2100 RF: 0 guaifenesin [Mucus Relief] 400 mg Tablet 400 mg PO BID RF: 0 magnesium oxide 400 mg magnesium Tablet 400 mg PO DAILY RF: 0 loperamide 2 mg Capsule 2 mg PO Q6H PRN (Reason: Diarrhea) RF: 0 acetaminophen 500 mg Tablet 500 - 1,000 mg PO Q6H PRN (Reason: Pain) RF: 0 docusate sodium 100 mg Capsule 100 mg PO DAILY RF: 0 vancomycin 125 mg capsule 125 mg PO 4X/DAY Qty: 0 RF: 0 Held warfarin 4 mg tablet 4 mg PO SUMOWEFRSA RF: 0 Hold Instructions: Resume on 01/26/21. warfarin 4 mg tablet 6 mg PO TUTH RF: 0 Hold Instructions: Resume on 01/26/21. Other Ambulatory Orders: Prothrombin Time w/INR (Routine) Timeframe: 2 Days Facility: [facility] - Location: Laboratory Ordered By: Raymundo BRADSHAW Referrals / Follow Up: Dangelo Yadav MD [Primary Care Provider] - Disposition Disposition (needs filled in before D/C Order can be placed): [facility] Facility Charges/Coding Addendum Addendum: Dr. Presley: I personally reviewed the chart and examined the patient, and agree with the above findings. 85-year-old male with weakness and inability to complete ADLs at home. He was recently diagnosed with C. difficile diarrhea and has been getting oral vancomycin as well as IV fluids for hydration. He does have a history of A. fib as well chronic kidney disease which are all stable at the moment. We will continue with PT/OT for evaluation and possible placement on discharge. He does state that he feels little bit better today. 01/22/2021: Doing well, diarrhea is improving and he denies any abdominal pain. Currently being evaluated by PT and OT for possible placement on discharge. 01/23/2021: Feels better today, diarrhea is improving denies any abdominal pain. He did get except for pre-CERT and I discussed with him the plan for discharge today and he expressed understanding the risk benefits of going to the SNF and will go to SNF today. His INR is still elevated at 4.3, will recommend continue holding but he does not has any bleeding issues therefore will not provide any active reversal at this time. I do recommend that he have continued monitoring [facility] for [facility]. Visit Charges Inpatient E&M: 51952 Disch Hosp
[2021-01-23] MEDS: Ferrous Sulfate 325 MG Tablet PO (14:50)
[2021-01-23 15:46] VITALS: BP 104/92; PULSE 69; RESP 18; TEMP 36.4; O2SAT 94
--- NOTE | 2021-01-23 15:49 | NURSING ---
Report called to [facility] from [facility].
--- NOTE | 2021-01-23 19:01 | NURSING ---
reviewed documentation by Nelly Veliz, student RN
== END 2021-01-23 16:10 | disposition skilled nursing facility (03) ==
LOC: ED 15:42 → MS3 16:53
PROVIDERS: Nurse Practitioner Family; Admitting Provider Internal Medicine; Emergency Provider Emergency Medicine; Visit Provider Family Medicine
DX: A04.72 Enterocolitis due to Clostridium difficile, not specified as recurrent (principal); N17.9 Acute kidney failure, unspecified; I48.91 Unspecified atrial fibrillation; N18.32 Chronic kidney disease, stage 3b; R79.1 Abnormal coagulation profile; N40.0 Benign prostatic hyperplasia without lower urinary tract symptoms; I50.9 Heart failure, unspecified; E78.5 Hyperlipidemia, unspecified; E11.22 Type 2 diabetes mellitus with diabetic chronic kidney disease; I13.0 Hypertensive heart and chronic kidney disease with heart failure and stage 1 through stage 4 chronic kidney disease, or unspecified chronic kidney disease; M10.9 Gout, unspecified; Z79.899 Other long term (current) drug therapy; Z79.01 Long term (current) use of anticoagulants; Z79.82 Long term (current) use of aspirin
CPT/HCPCS: 36415; 80048; 80053; 85025; 85610; 87426; 96360; 96361; 97110; 97162; 97166; 97530; 97535; 97802; 99218; 99285; J7030; A4216; G0378

== ENCOUNTER 2021-01-25 16:59 | Observation (INO) | payer MEDICARE, SELFPAY ==
[2021-01-25 17:05] VITALS: BP 136/97; PULSE 89; RESP 24; TEMP 36.6; O2SAT 99; BMI 38.0
--- NOTE | 2021-01-25 17:32 | EDS_ITS ---
HPI HPI - GI History of Present Illness Chief Complaint: GI Bleed Informant: patient Abdominal Pain/Flank Pain Onset: Days Context: Gradual Onset Timing: Intermittent Current Severity: Mild Maximum Severity: Mild Nausea/Vomiting/Emesis GI Symptom: Negative for Nausea and Vomiting Diarrhea/Melena/Hematochezia GI Symptom: Positive for Diarrhea and Hematochezia Onset: Days Stool Quality: Positive for Loose Severity: Mild Narrative Narrative: 85-year-old male history of A. fib, diabetes chronic kidney disease for which he previously was on Coumadin but has had that DC'd several days ago. He had C. difficile diarrhea is currently being treated with vancomycin at [facility]. He has had more bloody stools over the last several days has been increasing. He denies vomiting. He denies fever. Prior similar symptoms: Yes Recent Illness/Hospitalization: Yes PFSH [facility] Medical History BPH (benign prostatic hyperplasia) Chronic a-fib CKD (chronic kidney disease) Diabetes Enterocolitis due to Clostridium difficile Former smoker Heart failure HTN (hypertension) Idiopathic gout Muscle weakness Prostate CA Sleep apnea Home Medications acetaminophen 500 - 1,000 mg PO Q6H PRN 01/20/21 [History Last Taken Unknown] allopurinol 300 mg PO DAILY 01/20/21 [History Last Taken 01/20/21] aspirin [Aspirin Low Dose] 81 mg PO DAILY@0800 01/20/21 [History Last Taken 01/20/21] atorvastatin 40 mg PO QHS@2100 01/20/21 [History Last Taken 01/19/21] bumetanide 1 mg PO BID 01/20/21 [History Last Taken 01/20/21] calcitriol 0.25 mcg PO DAILY 01/20/21 [History Last Taken 01/20/21] doxazosin 2 mg PO QHS@2100 01/20/21 [History Last Taken 01/19/21] ergocalciferol (vitamin D2) 1,250 mcg PO TU 01/20/21 [History Last Taken 01/20/21] ferrous sulfate 325 mg PO DAILY@1500 01/20/21 [History Last Taken 01/19/21] guaifenesin [Mucus Relief] 400 mg PO BID 01/20/21 [History Last Taken 01/20/21] loperamide 2 mg PO Q6H PRN 01/20/21 [History Last Taken Unknown] magnesium oxide 400 mg PO DAILY 01/20/21 [History Last Taken 01/20/21] metoprolol succinate 25 mg PO DAILY 01/20/21 [History Last Taken 01/20/21] potassium chloride 40 meq PO BID 01/20/21 [History Last Taken 01/20/21] warfarin 4 mg PO SUMOWEFRSA 01/20/21 [History Last Taken 01/19/21] warfarin 6 mg PO TUTH 01/20/21 [History Last Taken 01/15/21] vancomycin 125 mg PO 4X/DAY #0 cap 01/23/21 [Rx Last Taken 01/20/21] Allergy/AdvReac Type Severity Reaction Status Date / Time codeine Allergy PT UNSURE Verified 01/25/21 17:08 OF REACTION Social History Smoking Status: Former smoker alcohol intake: never substance use type: does not use ROS ROS ED ROS Narrative Diarrhea. Review of Systems ROS Unobtainable: Denies due to encephalopathy Constitutional Constitutional ED: Denies fever(s) ENT ENT ED: Denies ear pain Cardiovascular Cardiovascular: Denies chest pain Respiratory/Chest Respiratory/Chest: Denies cough or dyspnea Gastrointestinal Gastrointestinal: Reports diarrhea; Denies abdominal pain, nausea or vomiting Genitourinary Genitourinary ED: Denies dysuria Musculoskeletal Musculoskeletal: Denies myalgias Integumentary Denies rash Psychiatric Psychiatric: Denies depression Endocrine Endocrinology: Denies polyuria Hematologic/Lymphatic Hematologic/Lymphatic: Denies easy bruising Allergic/Immunologic Allergic/Immunologic ED: Denies urticaria EXAM Physical Exam Narrative Exam Narrative: 5-year-old male no acute distress initial blood pressure 136/97. HEENT exam unremarkable. Neck nontender. Lungs clear to auscultation bilaterally. Heart regular rhythm rate about 90 no murmur. Abdomen soft nondistended normal bowel sounds no peritoneal signs. Moving all 4 extremities. Trace edema both lower extremities. Neurologically he is awake and alert with no focal motor deficits. Const Vital Signs: 01/25/21 17:05 01/25/21 19:07 Temperature 97.8 F Temperature Source Oral Pulse Rate 89 90 Respiratory Rate 24 H 18 Blood Pressure 136/97 H 138/66 H Blood Pressure Mean 110 90 Pulse Ox 99 Oxygen Delivery Method Room Air Positive well nourished, well developed and obese; Negative for cachectic, contractures or unkempt General Appearance ED: well developed and NAD; Negative for unkempt, cachectic or contractures Nutritional Appearance: obese; Negative for cachectic HEENT Reports moist mucous membranes normocephalic; Negative for trauma or tenderness Eyes PERRL and EOMs intact bilaterally Neck no lymphadenopathy, supple and no JVD General: Negative for tenderness Resp normal respiratory effort and clear to auscultation bilaterally Auscultation: Negative for rales, rhonchi or wheezes Cardio regular rate, regular rhythm, S1 normal heart sound, S2 normal heart sound and no murmurs GI non-tender, non-distended and no masses Auscultation: normoactive bowel sounds Palpation: soft; Negative for tender, guarding or rigid Back/Spine no CVA tenderness General Back: Negative for CVA tenderness Cervical Spine: Negative for cervical spine tenderness Thoracic Spine / Upper Back: Negative for thoracic spinal tenderness Extremity full ROM General Extremety ED: Negative for edema or tenderness General Extremity: Negative for edema Neuro moves all extremities Sensorium / Orientation: alert, oriented to person, oriented to place and oriented to time; Negative for orientation impaired Motor Exam: strength 5/5 throughout Psych mental status grossly normal Appearance: Negative for unkempt Skin no wounds General Skin Exam: Negative for jaundice Lesions: no lesions Rashes: no rashes MDM MDM MDM Narrative Medical decision making narrative: Older male placed in a care facility with recent C. difficile with increased rectal bleeding. He will be worked up for possible significant GI bleed. Repeat exam patient is resting comfortably. He is stable. But he has had 3 bowel movements of primarily blood since he has been here. He is remained normotensive. Discussed with the hospitalist and the primary care physician at the [facility] care facility and patient will be admitted for further evaluation and work-up. Repeat hemoglobins. Transfusion if necessary. And has been given IV vitamin K. Lab Data Attestation: I reviewed the patient's lab results. Lab results narrative: CBC showed a white count 1.6 hemoglobin 8.9 it was previously 10.14 days ago. States the drop of a unit of hemoglobin. Electrolytes unremarkable his BUN is 22 creatinine 1.3 for his chronic renal insufficiency. Liver enzymes are normal. He has been typed and screened. Patient's Coumadin was stopped the other day about 5 days ago but his INR is still 3.7. He was given vitamin K. Labs: Laboratory Results - last 24 hr 01/25/21 01/25/21 01/25/21 17:24 17:24 17:24 WBC 11.6 H RBC 2.93 L Hgb 8.9 L Hct 28.5 L MCV 97.3 H MCH 30.4 MCHC 31.2 L RDW Std Deviation 62.1 H RDW Coeff of Trina 17.8 H Plt Count 74 L MPV 10.5 Immature Gran % (Auto) 1.300 H Neut % (Auto) 88.3 H Lymph % (Auto) 4.9 L [place] % (Auto) 4.2 Eos % (Auto) 1.0 Baso % (Auto) 0.3 Absolute Neuts (auto) 10.2 H Absolute Lymphs (auto) 0.57 L Nucleated RBC % 0 Differential Comment SCANNED Platelet Estimate ADEQUATE PT INR Sodium 136 Potassium 4.3 Chloride 106 Carbon Dioxide 24.0 Anion Gap 6 BUN 22 H Creatinine 1.34 H Estim Creat Clear Calc 45.85 Est GFR (MDRD) Af Amer 65 Est GFR (MDRD) Non-Af 54 L BUN/Creatinine Ratio 16.4 Glucose 165 H Calcium 7.9 L Total Bilirubin 0.30 AST 24 ALT 17 Alkaline Phosphatase 90 Total Protein 5.2 L Albumin 1.6 L Globulin 3.6 Albumin/Globulin Ratio 0.4 L Blood Type Cancelled Antibody Screen Cancelled 01/25/21 01/25/21 17:24 18:05 WBC RBC Hgb Hct MCV MCH MCHC RDW Std Deviation RDW Coeff of Trina Plt Count MPV Immature Gran % (Auto) Neut % (Auto) Lymph % (Auto) [place] % (Auto) Eos % (Auto) Baso % (Auto) Absolute Neuts (auto) Absolute Lymphs (auto) Nucleated RBC % Differential Comment Platelet Estimate PT 35.9 H INR 3.7 Sodium Potassium Chloride Carbon Dioxide Anion Gap BUN Creatinine Estim Creat Clear Calc Est GFR (MDRD) Af Amer Est GFR (MDRD) Non-Af BUN/Creatinine Ratio Glucose Calcium Total Bilirubin AST ALT Alkaline Phosphatase Total Protein Albumin Globulin Albumin/Globulin Ratio Blood Type B POSITIVE Antibody Screen NEGATIVE Discharge Plan Triage Chief Complaint: GI Bleed ED Provider: Abdias Cr Dx/Rx/DC Orders Clinical Impression: C. difficile diarrhea, Acute lower gastrointestinal bleeding, Coagulopathy, Chronic kidney insufficiency Prescriptions: No Action atorvastatin 40 mg tablet 40 mg PO QHS@2100 RF: 0 aspirin [Aspirin Low Dose] 81 mg Tablet,Delayed Release (Dr/Ec) 81 mg PO DAILY@0800 RF: 0 warfarin 4 mg tablet 4 mg PO SUMOWEFR RF: 0 Hold Instructions: Resume on 01/26/21. warfarin 4 mg tablet 6 mg PO TUTH RF: 0 Hold Instructions: Resume on 01/26/21. potassium chloride 20 mEq tablet,ER particles/crystals 40 meq PO BID RF: 0 ferrous sulfate 325 mg (65 mg iron) Tablet 325 mg PO DAILY@1500 RF: 0 bumetanide 1 mg tablet 1 mg PO BID RF: 0 allopurinol 300 mg tablet 300 mg PO DAILY RF: 0 metoprolol succinate 25 mg tablet extended release 24 hr 25 mg PO DAILY RF: 0 ergocalciferol (vitamin D2) 1,250 mcg (50,000 unit) capsule 1,250 mcg PO TU RF: 0 calcitriol 0.25 mcg capsule 0.25 mcg PO DAILY RF: 0 doxazosin 2 mg tablet 2 mg PO QHS@2100 RF: 0 guaifenesin [Mucus Relief] 400 mg Tablet 400 mg PO BID RF: 0 magnesium oxide 400 mg magnesium Tablet 400 mg PO DAILY RF: 0 loperamide 2 mg Capsule 2 mg PO Q6H PRN (Reason: Diarrhea) RF: 0 acetaminophen 500 mg Tablet 500 - 1,000 mg PO Q6H PRN (Reason: Pain) RF: 0 vancomycin 125 mg capsule 125 mg PO 4X/DAY Qty: 0 RF: 0 Primary Care Provider: Dangelo Yadav Referrals: Dangelo Yadav MD [Primary Care Provider] - Disposition Disposition: Acute Care Hospital [facility]
[2021-01-25 17:58] LABS: International Normalized Ratio 3.7; Prothrombin Time (Protime)PT. 35.9 SECONDS (11.7-14.9)
[2021-01-25 18:05] LABS: ALB/GLOB Ratio 0.4 RATIO (0.9-2.4); AST(SGOT) 24 U/L (15-37); Alanine Aminotransfer ALT/SGPT 17 U/L (16-61); Albumin, Serum 1.6 g/dL (3.2-5.0); Alkaline Phosphatase 90 U/L (45-117); Anion Gap 6 (5-15); BUN 22 mg/dL (7-18); BUN/Creat Ratio 16.4 RATIO (10-20); Calcium,Total 7.9 mg/dL (8.5-10.1); Chloride 106 mmol/L (98-107); Creatinine, Serum 1.34 mg/dL (0.70-1.30); EST Glomerular Filtration Rate 54 mL/min (>60); Est Glom Filt Rate - Afr Amer 65 mL/min (>60); Estimated Creatinine Clearance 45.85 ml/min; Globulin 3.6 g/dL (2.2-4.2); Glucose 165 mg/dL (74-106); Potassium 4.3 mmol/L (3.5-5.1); Protein, Total 5.2 g/dL (6.4-8.2); Sodium Level 136 mmol/L (136-145)
[2021-01-25 18:20] LABS: Absolute Lymphocyte Count 0.57 X10^3/uL (0.83-4.51); Absolute Neutrophil Count 10.2 X10^3/uL (2.0-7.7); Basophil# 0.03 X10^3/uL; Basophil% 0.3 % (0-1); Eosinophil# 0.12 X10^3/uL; Hematocrit 28.5 % (40-54); Hemoglobin 8.9 g/dL (13.0-16.5); Lymphocyte # 0.57 X10^3/ul (0.83-4.51); Lymphocyte % 4.9 % (19-41); Mean Corp Hgb Conc 31.2 g/dL (32-36); Mean Corpuscular Hgb 30.4 pg (27.0-32.0); Mean Corpuscular Volume 97.3 fL (80-94); Mean Platelet Vol. 10.5 fl (6.2-12.0); Monocyte# 0.49 X10^3/uL; Monocyte% 4.2 % (0-10); NRBC Flagged by Analyzer 0 % (0-5); Neutrophil # 10.23 X10^3/uL (2.7-7.7); Neutrophil % 88.3 % (47-70); POSITIVE COUNT YES; POSITIVE DIFFERENTIAL YES; RBC Distribution Width CV 17.8 % (11.6-14.6); RBC Distribution Width SD 62.1 fl (35.1-43.9); Red Blood Count 2.93 M/mm3 (4.6-6.2); White Blood Count 11.6 K/mm3 (4.4-11.0)
[2021-01-25 18:23] LABS: Differential Indicated SCAN CRITERIA MET
[2021-01-25 18:47] LABS: Platelet Count 74 K/mm3 (150-450)
[2021-01-25 18:48] LABS: Differential Comment SCANNED
[2021-01-25 18:49] LABS: Platelet Estimate ADEQUATE (ADEQ)
--- NOTE | 2021-01-25 18:53 | ED.RN ---
Patient up two times back to back having a bowel movement, noted loose bloody stools moderate amount. Dr. Cr notified.
[2021-01-25 19:07] VITALS: BP 138/66; PULSE 90; RESP 18
[2021-01-25 19:39] VITALS: BP 127/73; PULSE 72; RESP 17; TEMP 36.4; O2SAT 98
[2021-01-25 20:36] VITALS: BP 115/43; PULSE 80; RESP 18; TEMP 36.3; O2SAT 97
--- NOTE | 2021-01-25 20:38 | PCS.PANDOC ---
PANDEMIC DOCUMENTATION INITIATED: Date: 10/27/2020 Time: 190
[2021-01-25 20:39] VITALS: BMI 36.8
--- NOTE | 2021-01-25 20:54 | PCM.HP.STD ---
HPI - General General Date of Admission: 01/25/21 HPI Narrative AYAN SANTANA, is a 85 M who presents to the hospital from the [facility] with a GI bleed. This is in the setting of C. difficile therefore no intervention can be done. He is not severely anemic and does not have significant vital sign derangements at this time however the alf does not want to take him back this evening. His INR is still supratherapeutic at 3.7. He feels fine and denies any abdominal pain. He is having danielle blood and was given a dose of vitamin K IV in the ER. [facility] Medical History BPH (benign prostatic hyperplasia) Chronic a-fib CKD (chronic kidney disease) Diabetes Enterocolitis due to Clostridium difficile Former smoker Heart failure HTN (hypertension) Idiopathic gout Muscle weakness Prostate CA Sleep apnea Home Medications acetaminophen 500 - 1,000 mg PO Q6H PRN 01/20/21 [History Last Taken Unknown] allopurinol 300 mg PO DAILY 01/20/21 [History Last Taken 01/20/21] aspirin [Aspirin Low Dose] 81 mg PO DAILY@0800 01/20/21 [History Last Taken 01/20/21] atorvastatin 40 mg PO QHS@2100 01/20/21 [History Last Taken 01/19/21] bumetanide 1 mg PO BID 01/20/21 [History Last Taken 01/20/21] calcitriol 0.25 mcg PO DAILY 01/20/21 [History Last Taken 01/20/21] doxazosin 2 mg PO QHS@2100 01/20/21 [History Last Taken 01/19/21] ergocalciferol (vitamin D2) 1,250 mcg PO TU 01/20/21 [History Last Taken 01/20/21] ferrous sulfate 325 mg PO DAILY@1500 01/20/21 [History Last Taken 01/19/21] guaifenesin [Mucus Relief] 400 mg PO BID 01/20/21 [History Last Taken 01/20/21] loperamide 2 mg PO Q6H PRN 01/20/21 [History Last Taken Unknown] magnesium oxide 400 mg PO DAILY 01/20/21 [History Last Taken 01/20/21] metoprolol succinate 25 mg PO DAILY 01/20/21 [History Last Taken 01/20/21] potassium chloride 40 meq PO BID 01/20/21 [History Last Taken 01/20/21] warfarin 4 mg PO SUMOWEFRSA 01/20/21 [History Last Taken 01/19/21] warfarin 6 mg PO TUTH 01/20/21 [History Last Taken 01/15/21] vancomycin 125 mg PO 4X/DAY #0 cap 01/23/21 [Rx Last Taken 01/20/21] Allergy/AdvReac Type Severity Reaction Status Date / Time codeine Allergy PT UNSURE Verified 01/25/21 17:08 OF REACTION Family History (Updated 01/25/21 @ 20:[address] Brandt Presley MD) Other Diabetes Heart disease no surgical history Social History Smoking Status: Former smoker alcohol intake: never substance use type: does not use ROS Constitutional Constitutional: Denies chills, fatigue, fever(s) or malaise Eyes Eyes: Denies blurry vision ENT HEENT: Denies headache(s) or nasal discharge Cardiovascular Cardiovascular: Denies chest pain, dyspnea on exertion or syncope Respiratory/Chest Respiratory/Chest: Denies cough, shortness of breath at rest or shortness of breath with exertion Gastrointestinal Gastrointestinal: Reports diarrhea and melena; Denies constipation, nausea or vomiting Genitourinary Genitourinary: Denies dysuria Neurologic Neurologic: Denies focal weakness, numbness or tremor(s) Psychiatric Psychiatric: Denies anxiety or depression Vital Signs Vital Signs Vital Signs: 01/25/21 17:05 01/25/21 19:07 01/25/21 19:39 Temperature 97.8 F 97.5 F L Temperature Source Oral Temporal Pulse Rate 89 90 72 Respiratory Rate 24 H 18 17 Respiratory Effort Respiratory Depth Respiratory Pattern Blood Pressure 136/97 H 138/66 H 127/73 H Blood Pressure Mean 110 90 91 Blood Pressure Source Blood Pressure Position Blood Pressure Location Pulse Ox 99 98 Oxygen Delivery Method Room Air Room Air 01/25/21 20:36 01/25/21 20:47 Temperature 97.3 F L Temperature Source Temporal Pulse Rate 80 Respiratory Rate 18 Respiratory Effort Normal Non-Labored Respiratory Depth Normal Respiratory Pattern Normal Blood Pressure 115/43 L Blood Pressure Mean 67 Blood Pressure Source Monitor Blood Pressure Position Left Lateral Blood Pressure Location Right Arm Pulse Ox 97 Oxygen Delivery Method Room Air Room Air Weight Weight: 271 lb 13.279 oz Body Mass Index (BMI) 36.8 Physical Exam Const alert, oriented x3 and no apparent distress General Appearance: cooperative HEENT normocephalic Mouth: dry mucous membranes Eyes PERRL, EOMs intact bilaterally and conjunctivae normal Neck supple and no JVD Resp normal respiratory effort, no retractions, no use of accessory muscles and clear to auscultation bilaterally Auscultation: Negative for crackles, rales, rhonchi or wheezes Cardio regular rate, regular rhythm, S1 normal heart sound, S2 normal heart sound and no murmurs GI soft to palpation, non-tender and non-distended; Negative for hepatosplenomegaly Extremity no clubbing, cyanosis or edema Skin no rashes or lesions noted Neuro no focal motor deficits and no sensory deficits noted Psych affect normal Appearance: appropriate Results Lab / Micro Data Result Diagrams: 01/25/21 17:24 01/25/21 17:24 Labs: Laboratory Results - last 24 hr 01/25/21 17:24: WBC 11.6 H, RBC 2.93 L, Hgb 8.9 L, Hct 28.5 L, MCV 97.3 H, MCH 30.4, MCHC 31.2 L, RDW Std Deviation 62.1 H, RDW Coeff of Trina 17.8 H, Plt Count 74 L, MPV 10.5, Immature Gran % (Auto) 1.300 H, Neut % (Auto) 88.3 H, Lymph % (Auto) 4.9 L, [place] % (Auto) 4.2, Eos % (Auto) 1.0, Baso % (Auto) 0.3, Absolute Neuts (auto) 10.2 H, Absolute Lymphs (auto) 0.57 L, Nucleated RBC % 0, Differential Comment SCANNED, Platelet Estimate ADEQUATE 01/25/21 17:24: Sodium 136, Potassium 4.3, Chloride 106, Carbon Dioxide 24.0, Anion Gap 6, BUN 22 H, Creatinine 1.34 H, Estim Creat Clear Calc 45.85, Est GFR (MDRD) Af Amer 65, Est GFR (MDRD) Non-Af 54 L, BUN/Creatinine Ratio 16.4, Glucose 165 H, Calcium 7.9 L, Total Bilirubin 0.30, AST 24, ALT 17, Alkaline Phosphatase 90, Total Protein 5.2 L, Albumin 1.6 L, Globulin 3.6, Albumin/Globulin Ratio 0.4 L 01/25/21 17:24: Blood Type Cancelled, Antibody Screen Cancelled 01/25/21 17:24: PT 35.9 H, INR 3.7 01/25/21 18:05: Blood Type B POSITIVE, Antibody Screen NEGATIVE Assessment & Plan Assessment/Plan (1) C. difficile diarrhea: (2) Acute lower gastrointestinal bleeding: PLAN: 1. C. difficile colitis with a lower GI bleed secondary to supratherapeutic INR -We will continue with his p.o. vancomycin as this has been improving his colitis and his diarrhea -We will give him a dose of vitamin K IV in the ER and recheck his INR in the morning -Recheck hemoglobin at midnight and then again in the morning if necessary will transfuse -If hemoglobin is stable and INR has normalized can consider transfer back to SNF -Obviously hold Coumadin and aspirin in the setting of his bleed -Given his acute colitis at the moment no intervention is warranted -Continue with PT/OT -Obviously we will hold his Imodium in the setting of infectious colitis 2. HTN/HLD/A. fib/history of heart failure unknown type -Continue with his home metoprolol -Blood pressure is stable -Hold his aspirin secondary to the GI bleed we will continue to hold his Coumadin as well -Continue with his other cardiac meds including Bumex and Lipitor 3. CKD 3a -Stable -We will monitor renal function 4. BPH -Stable -Continue with doxazosin 5. Gout -Stable -Continue with allopurinol DVT: SCDs Charges/Coding Visit Charges OBSV E&M: 31585 Initial observation care L3
[2021-01-25] MEDS: Atorvastatin Calcium 40 MG Tablet PO (23:26)
[2021-01-25] MEDS: Doxazosin 1 MG Tablet 2 MG PO (23:26)
[2021-01-25] MEDS: Vancomycin 125 MG/5 ML Susp PO.SYRINGE PO (23:26)
[2021-01-25] MEDS: Potassium Chloride Oral Tablet 20 MEQ 40 MEQ PO (23:27)
[2021-01-26] VITALS (11 sets, daily range): BP systolic 100–137; BP diastolic 47–84; PULSE 75–92; RESP 16–20; TEMP 35.8–36.5; O2SAT 93–100
[2021-01-26 00:15] LABS: Hematocrit 26.7 % (40-54); Hemoglobin 8.5 g/dL (13.0-16.5)
[2021-01-26 07:20] LABS: Absolute Lymphocyte Count 0.65 X10^3/uL (0.83-4.51); Absolute Neutrophil Count 9.3 X10^3/uL (2.0-7.7); Basophil# 0.03 X10^3/uL; Basophil% 0.3 % (0-1); Eosinophil# 0.16 X10^3/uL; Eosinophils% 1.5 % (0-5); Hematocrit 23.2 % (40-54); Hemoglobin 7.4 g/dL (13.0-16.5); Lymphocyte # 0.65 X10^3/ul (0.83-4.51); Lymphocyte % 6.1 % (19-41); Mean Corp Hgb Conc 31.9 g/dL (32-36); Mean Corpuscular Volume 97.1 fL (80-94); Mean Platelet Vol. 11.9 fl (6.2-12.0); Monocyte# 0.48 X10^3/uL; Monocyte% 4.5 % (0-10); NRBC Flagged by Analyzer 0 % (0-5); Neutrophil # 9.26 X10^3/uL (2.7-7.7); Neutrophil % 86.1 % (47-70); POSITIVE COUNT YES; RBC Distribution Width CV 17.9 % (11.6-14.6); RBC Distribution Width SD 61.7 fl (35.1-43.9); Red Blood Count 2.39 M/mm3 (4.6-6.2); White Blood Count 10.7 K/mm3 (4.4-11.0)
[2021-01-26 07:22] LABS: Differential Indicated SCAN CRITERIA MET
[2021-01-26 07:45] LABS: Anion Gap 3 (5-15); BUN 19 mg/dL (7-18); BUN/Creat Ratio 16.8 RATIO (10-20); Calcium,Total 8.1 mg/dL (8.5-10.1); Chloride 112 mmol/L (98-107); Creatinine, Serum 1.13 mg/dL (0.70-1.30); EST Glomerular Filtration Rate 66 mL/min (>60); Est Glom Filt Rate - Afr Amer 80 mL/min (>60); Estimated Creatinine Clearance 54.37 ml/min; Glucose 120 mg/dL (74-106); Potassium 4.5 mmol/L (3.5-5.1); Sodium Level 138 mmol/L (136-145)
[2021-01-26 08:12] LABS: International Normalized Ratio 1.5; Prothrombin Time (Protime)PT. 17.7 SECONDS (11.7-14.9)
--- NOTE | 2021-01-26 09:47 | PCM.PN.HOSP ---
Subjective Subjective Doing well, no issues overnight. His hemoglobin did drop to 7.4 Objective Data Objective Data Vital Signs: Vital Signs Temp Pulse Resp BP Pulse Ox 97.1 F L 77 18 128/57 H 93 01/26/21 04:22 01/26/21 04:22 01/26/21 04:22 01/26/21 04:22 01/26/21 04:22 Oxygen Delivery Method Room Air Weight: 271 lb 13.279 oz Body Mass Index (BMI) 36.8 Intake & Output: Intake and Output for Last 24 Hours 01/25/21 01/26/21 01/27/21 03:59 03:59 03:59 Intake Total 50.5 / 50.5 Balance 50.5 / 50.5 Lab / Micro Data Result Diagrams: 01/26/21 06:32 01/26/21 06:32 Labs: Laboratory Results - last 24 hr 01/25/21 17:24: WBC 11.6 H, RBC 2.93 L, Hgb 8.9 L, Hct 28.5 L, MCV 97.3 H, MCH 30.4, MCHC 31.2 L, RDW Std Deviation 62.1 H, RDW Coeff of Trina 17.8 H, Plt Count 74 L, MPV 10.5, Immature Gran % (Auto) 1.300 H, Neut % (Auto) 88.3 H, Lymph % (Auto) 4.9 L, [place] % (Auto) 4.2, Eos % (Auto) 1.0, Baso % (Auto) 0.3, Absolute Neuts (auto) 10.2 H, Absolute Lymphs (auto) 0.57 L, Nucleated RBC % 0, Differential Comment SCANNED, Platelet Estimate ADEQUATE 01/25/21 17:24: Sodium 136, Potassium 4.3, Chloride 106, Carbon Dioxide 24.0, Anion Gap 6, BUN 22 H, Creatinine 1.34 H, Estim Creat Clear Calc 45.85, Est GFR (MDRD) Af Amer 65, Est GFR (MDRD) Non-Af 54 L, BUN/Creatinine Ratio 16.4, Glucose 165 H, Calcium 7.9 L, Total Bilirubin 0.30, AST 24, ALT 17, Alkaline Phosphatase 90, Total Protein 5.2 L, Albumin 1.6 L, Globulin 3.6, Albumin/Globulin Ratio 0.4 L 01/25/21 17:24: Blood Type Cancelled, Antibody Screen Cancelled 01/25/21 17:24: PT 35.9 H, INR 3.7 01/25/21 18:05: Blood Type B POSITIVE, Antibody Screen NEGATIVE 01/25/21 18:05: Crossmatch See Detail 01/26/21 00:00: Hgb 8.5 L, Hct 26.7 L 01/26/21 06:32: WBC 10.7, RBC 2.39 L, Hgb 7.4 L, Hct 23.2 L, MCV 97.1 H, MCH 31.0, MCHC 31.9 L, RDW Std Deviation 61.7 H, RDW Coeff of Trina 17.9 H, Plt Count TNP, MPV 11.9, Immature Gran % (Auto) 1.500 H, Neut % (Auto) 86.1 H, Lymph % (Auto) 6.1 L, [place] % (Auto) 4.5, Eos % (Auto) 1.5, Baso % (Auto) 0.3, Absolute Neuts (auto) 9.3 H, Absolute Lymphs (auto) 0.65 L, Nucleated RBC % 0 01/26/21 06:32: Sodium 138, Potassium 4.5, Chloride 112 H, Carbon Dioxide 23.0, Anion Gap 3 L, BUN 19 H, Creatinine 1.13, Estim Creat Clear Calc 54.37, Est GFR (MDRD) Af Amer 80, Est GFR (MDRD) Non-Af 66, BUN/Creatinine Ratio 16.8, Glucose 120 H, Calcium 8.1 L 01/26/21 06:32: PT 17.7 H, INR 1.5 Physical Exam Const alert, oriented x3 and no apparent distress General Appearance: cooperative HEENT normocephalic Eyes PERRL, EOMs intact bilaterally and conjunctivae normal Neck supple and no JVD Resp normal respiratory effort, no retractions, no use of accessory muscles and clear to auscultation bilaterally Auscultation: Negative for crackles, rales, rhonchi or wheezes Cardio regular rate, regular rhythm, S1 normal heart sound, S2 normal heart sound and no murmurs GI soft to palpation, non-tender and non-distended; Negative for hepatosplenomegaly Extremity no clubbing, cyanosis or edema Skin no rashes or lesions noted Neuro no focal motor deficits and no sensory deficits noted Psych affect normal Appearance: appropriate Assessment & Plan Assessment/Plan (1) C. difficile diarrhea: (2) Acute lower gastrointestinal bleeding: PLAN: 1. C. difficile colitis with a lower GI bleed secondary to supratherapeutic INR -We will continue with his p.o. vancomycin as this has been improving his colitis and his diarrhea -He received vitamin K IV yesterday his INR today is 1.5 -Hemoglobin this morning is 7.4, will transfuse 2 units and get him back to the detention -Obviously hold Coumadin and aspirin in the setting of his bleed -Given his acute colitis at the moment no intervention is warranted -Continue with PT/OT -Discontinue Imodium 2. HTN/HLD/A. fib/history of heart failure unknown type -Continue with his home metoprolol -Blood pressure is stable -Hold his aspirin secondary to the GI bleed we will continue to hold his Coumadin as well -Continue with his other cardiac meds including Bumex and Lipitor 3. CKD 3a -Stable -We will monitor renal function 4. BPH -Stable -Continue with doxazosin 5. Gout -Stable -Continue with allopurinol DVT: SCDs Charges/Coding Visit Charges Inpatient E&M: 67914 Subs Hosp L2
[2021-01-26] MEDS: Potassium Chloride Oral Tablet 20 MEQ 40 MEQ PO ×2 (11:06→17:31)
[2021-01-26] MEDS: Magnesium Chloride 64 MG Delay Rel.Tablet 128 MG PO (11:06)
[2021-01-26] MEDS: Metoprolol(XL)Succ 25 MG Tablet PO (11:06)
[2021-01-26] MEDS: Ferrous Sulfate 325 MG Tablet PO (11:06)
[2021-01-26] MEDS: 0.9% Saline Lock 10 ML Syringe IV (11:06)
[2021-01-26] MEDS: Allopurinol 300 MG Tablet PO (11:07)
[2021-01-26] MEDS: Calcitriol 0.25 MCG Capsule PO (11:07)
[2021-01-26] MEDS: Vancomycin 125 MG/5 ML Susp PO.SYRINGE PO ×4 (11:07→23:01)
[2021-01-26] MEDS: Bumetanide 0.5 MG Tablet 1 MG PO ×2 (11:07→17:31)
[2021-01-26 12:39] LABS: Platelet Estimate MOD DEC (ADEQ)
--- NOTE | 2021-01-26 13:00 | CASEMGMT ---
Addendum entered by Shana Chauhan 01/26/21 13:16: PT/OT evaluations faxed. SHIRLEY Briceno Original Note: SW spoke w/physician, initially it was thought pt may be ready for discharge back to [facility] today. SW called [facility], spoke w/Arlette, asked about if precert would be needed if pt were to come back today, she states will need to check. SW spoke w/RN, it does not seem at this time however that pt will be ready for discharge back to [facility] [place] [facility] today. SW called Arlette again at [facility] and left a message letting her know that pt will not be returning today. SW spoke w/pt, confirmed the plan would be for pt to return to [facility] at discharge. SW explained that we may need to get precert again once he is ready to go back, pt states understanding. SW will continue to follow for discharge back to [facility] when ready. Updates faxed, PT/OT are pending. SHIRLEY Briceno
--- NOTE | 2021-01-26 16:24 | CASEMGMT ---
ROLAN CM in to complete MAHONEY form at this time. RN CM explained MAHONEY form to patient, patient voiced understanding. Patient signed MAHONEY form and filed in chart. Patient provided with copy of signed MAHONEY form. Patient had no further questions or concerns at this time.
--- NOTE | 2021-01-26 16:27 | NURSING ---
TAR vitals at 1602 are actually 1617 vitals signs. this nurse stayed in room for 15 min. pt tolerated transfusion well. denies further needs at this time. pt remains up in chair.
[2021-01-26] MEDS: Doxazosin 1 MG Tablet 2 MG PO (23:01)
[2021-01-26] MEDS: Atorvastatin Calcium 40 MG Tablet PO (23:01)
[2021-01-26] MEDS: Menthol/Lanolin/Calamine/Znox 113 GM Tube 1 APPLIC TOPICAL (23:02)
[2021-01-27 03:35] VITALS: BP 126/75; PULSE 83; RESP 20; TEMP 36.6; O2SAT 93
[2021-01-27 07:17] LABS: Absolute Lymphocyte Count 0.79 X10^3/uL (0.83-4.51); Absolute Neutrophil Count 9.7 X10^3/uL (2.0-7.7); Basophil# 0.03 X10^3/uL; Basophil% 0.3 % (0-1); Eosinophil# 0.14 X10^3/uL; Eosinophils% 1.2 % (0-5); Hematocrit 28.5 % (40-54); Hemoglobin 9.4 g/dL (13.0-16.5); Lymphocyte # 0.79 X10^3/ul (0.83-4.51); Mean Corpuscular Hgb 30.3 pg (27.0-32.0); Mean Corpuscular Volume 91.9 fL (80-94); Mean Platelet Vol. 10.1 fl (6.2-12.0); Monocyte# 0.54 X10^3/uL; Monocyte% 4.8 % (0-10); NRBC Flagged by Analyzer 0 % (0-5); Neutrophil % 85.8 % (47-70); Platelet Count 197 K/mm3 (150-450); RBC Distribution Width CV 18.7 % (11.6-14.6); RBC Distribution Width SD 59.8 fl (35.1-43.9); White Blood Count 11.3 K/mm3 (4.4-11.0)
[2021-01-27 08:02] LABS: International Normalized Ratio 1.2
[2021-01-27 08:07] LABS: Anion Gap 4 (5-15); BUN 23 mg/dL (7-18); BUN/Creat Ratio 20.5 RATIO (10-20); Calcium,Total 8.2 mg/dL (8.5-10.1); Chloride 110 mmol/L (98-107); Creatinine, Serum 1.12 mg/dL (0.70-1.30); EST Glomerular Filtration Rate 66 mL/min (>60); Est Glom Filt Rate - Afr Amer 80 mL/min (>60); Estimated Creatinine Clearance 54.85 ml/min; Glucose 122 mg/dL (74-106); Potassium 4.4 mmol/L (3.5-5.1); Sodium Level 138 mmol/L (136-145)
[2021-01-27 09:52] VITALS: BP 118/72; PULSE 85; RESP 18; TEMP 36.8; O2SAT 98
[2021-01-27] MEDS: Vancomycin 125 MG/5 ML Susp PO.SYRINGE PO ×4 (09:56→21:55)
[2021-01-27 09:57] VITALS: PULSE 85
[2021-01-27] MEDS: Potassium Chloride Oral Tablet 20 MEQ 40 MEQ PO ×2 (09:57→18:42)
[2021-01-27] MEDS: Magnesium Chloride 64 MG Delay Rel.Tablet 128 MG PO (09:57)
[2021-01-27] MEDS: Allopurinol 300 MG Tablet PO (09:57)
[2021-01-27] MEDS: Metoprolol(XL)Succ 25 MG Tablet PO (09:57)
[2021-01-27] MEDS: Calcitriol 0.25 MCG Capsule PO (09:57)
[2021-01-27] MEDS: Bumetanide 0.5 MG Tablet 1 MG PO ×2 (09:57→18:42)
--- NOTE | 2021-01-27 10:27 | PN.HOSP_ITS ---
Subjective Subjective Doing well, no issues overnight. Bowels are slowing down but he is still passing clots this is to be expected and I don't think demonstrates any new bleeding. INR is down to 1.2. I did discuss with him the risk for stroke with his INR however cannot start him on any blood thinner secondary to his bleeding from his C. difficile colitis Objective Data Objective Data Vital Signs: Vital Signs Temp Pulse Resp BP Pulse Ox 98.2 F 85 18 118/72 98 01/27/21 09:52 01/27/21 09:57 01/27/21 09:52 01/27/21 09:52 01/27/21 09:52 Oxygen Delivery Method Room Air Weight: 271 lb 13.279 oz Body Mass Index (BMI) 36.8 Intake & Output: Intake and Output for Last 24 Hours 01/26/21 01/27/21 01/28/21 03:59 03:59 03:59 Intake Total 50.5 / 50.5 1650 / 1650 480 / 480 Output Total 240 / 240 Balance 50.5 / 50.5 1650 / 1650 240 / 240 Lab / Micro Data Result Diagrams: 01/27/21 07:08 01/27/21 07:08 Labs: Laboratory Results - last 24 hr 01/25/21 18:05: Crossmatch See Detail 01/26/21 06:32: Platelet Estimate MOD 01/27/21 07:08: PT 15.0 H, INR 1.2 01/27/21 07:08: WBC 11.3 H, RBC 3.10 L, Hgb 9.4 L, Hct 28.5 L, MCV 91.9 D, MCH 30.3, MCHC 33.0, RDW Std Deviation 59.8 H, RDW Coeff of Trina 18.7 H, Plt Count 197, MPV 10.1, Immature Gran % (Auto) 0.900, Neut % (Auto) 85.8 H, Lymph % (Auto) 7.0 L, [place] % (Auto) 4.8, Eos % (Auto) 1.2, Baso % (Auto) 0.3, Absolute Neuts (auto) 9.7 H, Absolute Lymphs (auto) 0.79 L, Nucleated RBC % 0 01/27/21 07:08: Sodium 138, Potassium 4.4, Chloride 110 H, Carbon Dioxide 24.0, Anion Gap 4 L, BUN 23 H, Creatinine 1.12, Estim Creat Clear Calc 54.85, Est GFR (MDRD) Af Amer 80, Est GFR (MDRD) Non-Af 66, BUN/Creatinine Ratio 20.5 H, Glucose 122 H, Calcium 8.2 L Physical Exam Const alert, oriented x3 and no apparent distress General Appearance: cooperative HEENT normocephalic Eyes PERRL, EOMs intact bilaterally and conjunctivae normal Neck supple and no JVD Resp normal respiratory effort, no retractions, no use of accessory muscles and clear to auscultation bilaterally Auscultation: Negative for crackles, rales, rhonchi or wheezes Cardio regular rate, regular rhythm, S1 normal heart sound, S2 normal heart sound and no murmurs GI soft to palpation, non-tender and non-distended; Negative for hepatosplenomegaly Extremity no clubbing, cyanosis or edema Skin no rashes or lesions noted Neuro no focal motor deficits and no sensory deficits noted Psych affect normal Appearance: appropriate Assessment & Plan Assessment/Plan (1) C. difficile diarrhea: (2) Acute lower gastrointestinal bleeding: PLAN: 1. C. difficile colitis with a lower GI bleed secondary to supratherapeutic INR -We will continue with his p.o. vancomycin as this has been improving his colitis and his diarrhea -He received vitamin K IV yesterday his INR today is 1.2 -Hemoglobin this morning is 9.4, will repeat H&H this evening -Consult case management for discharge planning back to SNF -Obviously hold Coumadin and aspirin in the setting of his bleed -Given his acute colitis at the moment no intervention is warranted -Continue with PT/OT -Discontinue Imodium 2. HTN/HLD/A. fib/history of heart failure unknown type -Continue with his home metoprolol -Blood pressure is stable -Hold his aspirin secondary to the GI bleed we will continue to hold his Coumadin as well -Continue with his other cardiac meds including Bumex and Lipitor 3. CKD 3a -Stable -We will monitor renal function 4. BPH -Stable -Continue with doxazosin 5. Gout -Stable -Continue with allopurinol DVT: SCDs Charges/Coding Visit Charges OBSV E&M: 68016 Subsequent observation care L2
--- NOTE | 2021-01-27 13:03 | CASEMGMT ---
Addendum entered by Shana Chauhan 01/27/21 15:04: Pt is not going to return to [facility] today, SW left a message for Arlette at [facility] to let her know. SHIRLEY Briceno Original Note: Precert attained for pt to return to [facility] when ready. SW notified physician, will let SW know if pt is ready to return to [facility] today. SHIRLEY Briceno
[2021-01-27 13:37] LABS: Hematocrit 27.6 % (40-54); Hemoglobin 9.1 g/dL (13.0-16.5)
[2021-01-27] MEDS: Ferrous Sulfate 325 MG Tablet PO (14:05)
[2021-01-27] MEDS: Menthol/Lanolin/Calamine/Znox 113 GM Tube 1 APPLIC TOPICAL ×2 (14:05→21:57)
[2021-01-27 16:54] VITALS: BP 137/87; PULSE 97; RESP 16; TEMP 36.4; O2SAT 98
[2021-01-27 20:17] VITALS: BP 116/60; PULSE 81; RESP 18; TEMP 36.7; O2SAT 96
[2021-01-27] MEDS: Doxazosin 1 MG Tablet 2 MG PO (21:55)
[2021-01-27] MEDS: Atorvastatin Calcium 40 MG Tablet PO (21:55)
[2021-01-28 02:44] VITALS: BP 116/70; PULSE 91; RESP 20; TEMP 36.8; O2SAT 97
[2021-01-28 07:28] LABS: Absolute Neutrophil Count 7.6 X10^3/uL (2.0-7.7); Basophil# 0.02 X10^3/uL; Basophil% 0.2 % (0-1); Eosinophil# 0.16 X10^3/uL; Eosinophils% 1.8 % (0-5); Hematocrit 26.2 % (40-54); Hemoglobin 8.5 g/dL (13.0-16.5); Lymphocyte % 8.8 % (19-41); Mean Corp Hgb Conc 32.4 g/dL (32-36); Mean Corpuscular Hgb 30.4 pg (27.0-32.0); Mean Corpuscular Volume 93.6 fL (80-94); Monocyte% 5.5 % (0-10); NRBC Flagged by Analyzer 0 % (0-5); Neutrophil # 7.58 X10^3/uL (2.7-7.7); Neutrophil % 82.8 % (47-70); POSITIVE COUNT YES; RBC Distribution Width CV 18.6 % (11.6-14.6); White Blood Count 9.1 K/mm3 (4.4-11.0)
[2021-01-28 08:37] LABS: International Normalized Ratio 1.3; Prothrombin Time (Protime)PT. 15.8 SECONDS (11.7-14.9)
[2021-01-28 08:58] LABS: Differential Comment SCANNED; Platelet Estimate ADEQUATE (ADEQ)
--- NOTE | 2021-01-28 09:56 | PN.HOSP_ITS ---
Subjective Subjective Doing well, no issues overnight. Per nursing staff no further bloody bowel movements Objective Data Objective Data Vital Signs: Vital Signs Temp Pulse Resp BP Pulse Ox 98.2 F 91 20 H 116/70 97 01/28/21 02:44 01/28/21 02:44 01/28/21 02:44 01/28/21 02:44 01/28/21 02:44 Oxygen Delivery Method Room Air Weight: 271 lb 13.279 oz Body Mass Index (BMI) 36.8 Intake & Output: Intake and Output for Last 24 Hours 01/27/21 01/28/21 01/29/21 03:59 03:59 03:59 Intake Total 1650 / 1650 1920 / 1920 200 / 200 Output Total 840 / 840 Balance 1650 / 1650 1080 / 1080 200 / 200 Lab / Micro Data Result Diagrams: 01/28/21 06:08 01/27/21 07:08 Labs: Laboratory Results - last 24 hr 01/27/21 13:25: Hgb 9.1 L, Hct 27.6 L 01/28/21 06:08: PT 15.8 H, INR 1.3 01/28/21 06:08: WBC 9.1, RBC 2.80 L, Hgb 8.5 L, Hct 26.2 L, MCV 93.6, MCH 30.4, MCHC 32.4, RDW Std Deviation 62.0 H, RDW Coeff of Trina 18.6 H, Plt Count TNP, Immature Gran % (Auto) 0.900, Neut % (Auto) 82.8 H, Lymph % (Auto) 8.8 L, [place] % (Auto) 5.5, Eos % (Auto) 1.8, Baso % (Auto) 0.2, Absolute Neuts (auto) 7.6, Absolute Lymphs (auto) 0.80 L, Nucleated RBC % 0, Differential Comment SCANNED, Platelet Estimate ADEQUATE Physical Exam Const alert, oriented x3 and no apparent distress General Appearance: cooperative HEENT normocephalic Eyes PERRL, EOMs intact bilaterally and conjunctivae normal Neck supple and no JVD Resp normal respiratory effort, no retractions, no use of accessory muscles and clear to auscultation bilaterally Auscultation: Negative for crackles, rales, rhonchi or wheezes Cardio regular rate, regular rhythm, S1 normal heart sound, S2 normal heart sound and no murmurs GI soft to palpation, non-tender and non-distended; Negative for hepatosplenomegaly Extremity no clubbing, cyanosis or edema Skin no rashes or lesions noted Neuro no focal motor deficits and no sensory deficits noted Psych affect normal Appearance: appropriate Assessment & Plan Assessment/Plan (1) C. difficile diarrhea: (2) Acute lower gastrointestinal bleeding: PLAN: 1. C. difficile colitis with a lower GI bleed secondary to supratherapeutic INR -We will continue with his p.o. vancomycin as this has been improving his colitis and his diarrhea -He received vitamin K IV yesterday his INR today is 1.3 -Hemoglobin this morning is 8.5, will repeat H&H this afternoon. If stable could consider discharge back to the SNF -Consult case management for discharge planning back to SNF -Obviously hold Coumadin and aspirin in the setting of his bleed -Given his acute colitis at the moment no intervention is warranted -Continue with PT/OT -Discontinue Imodium 2. HTN/HLD/A. fib/history of heart failure unknown type -Continue with his home metoprolol -Blood pressure is stable -Hold his aspirin secondary to the GI bleed we will continue to hold his Coumadin as well -Continue with his other cardiac meds including Bumex and Lipitor 3. CKD 3a -Stable -We will monitor renal function 4. BPH -Stable -Continue with doxazosin 5. Gout -Stable -Continue with allopurinol DVT: SCDs Charges/Coding Visit Charges Inpatient E&M: 37179 Subs Hosp L2
[2021-01-28 10:14] VITALS: BP 108/60; PULSE 82; RESP 16; TEMP 36.5; O2SAT 96
[2021-01-28] MEDS: Allopurinol 300 MG Tablet PO (10:15)
[2021-01-28] MEDS: Potassium Chloride Oral Tablet 20 MEQ 40 MEQ PO ×2 (10:15→16:51)
[2021-01-28 10:16] VITALS: BP 108/60; PULSE 82
[2021-01-28] MEDS: Metoprolol(XL)Succ 25 MG Tablet PO (10:16)
[2021-01-28] MEDS: Calcitriol 0.25 MCG Capsule PO (10:16)
[2021-01-28] MEDS: Magnesium Chloride 64 MG Delay Rel.Tablet 128 MG PO (10:16)
[2021-01-28] MEDS: Menthol/Lanolin/Calamine/Znox 113 GM Tube 1 APPLIC TOPICAL (10:16)
[2021-01-28] MEDS: Bumetanide 0.5 MG Tablet 1 MG PO ×2 (10:16→16:51)
[2021-01-28] MEDS: Vancomycin 125 MG/5 ML Susp PO.SYRINGE PO ×3 (10:16→16:51)
[2021-01-28] MEDS: Ferrous Sulfate 325 MG Tablet PO (12:02)
[2021-01-28 12:31] LABS: Hematocrit 30.1 % (40-54); Hemoglobin 9.9 g/dL (13.0-16.5)
--- NOTE | 2021-01-28 14:13 | PCM.TXEXTCAR ---
Diet 01/25/21 20:51 Diet: Regular - General Food consistency:: Regular Liquid Consistency:: Regular/Thin Is pt able to select menu?: Yes Routine Orders/Code Status Routine Lab Work: CBC, BMP and INR Code Status: Full Code Therapies Physical Therapy: Eval and Treat Occupational Therapy: Eval and Treat Problem/Diagnosis (1) C. difficile diarrhea: Status: Acute (2) Acute lower gastrointestinal bleeding: Status: Acute Allergies/Procedures Done in Hospital Allergies codeine Allergy (Verified 01/25/21 17:08) PT UNSURE OF REACTION Procedures: None Type of Care/Length of Stay Estimated LOS: Convalescent Care Less Than 30 days Type of Care Needed: Skilled Rehab Potential: Good Prognosis: Good Additional Orders/Day of Discharge Day of Discharge: 01/28/21 Discharge Plan Admission Admit Date/Time: 01/25/21 20:49 Attending Provider: Brandt Presley Primary Care Provider: Dangelo Yadav Discharge Orders/Prescriptions Prescriptions: Continued atorvastatin 40 mg tablet 40 mg PO QHS@2100 RF: 0 potassium chloride 20 mEq tablet,ER particles/crystals 40 meq PO BID RF: 0 ferrous sulfate 325 mg (65 mg iron) Tablet 325 mg PO DAILY@1500 RF: 0 bumetanide 1 mg tablet 1 mg PO BID RF: 0 allopurinol 300 mg tablet 300 mg PO DAILY RF: 0 metoprolol succinate 25 mg tablet extended release 24 hr 25 mg PO DAILY RF: 0 ergocalciferol (vitamin D2) 1,250 mcg (50,000 unit) capsule 1,250 mcg PO TU RF: 0 calcitriol 0.25 mcg capsule 0.25 mcg PO DAILY RF: 0 doxazosin 2 mg tablet 2 mg PO QHS@2100 RF: 0 guaifenesin [Mucus Relief] 400 mg Tablet 400 mg PO BID RF: 0 magnesium oxide 400 mg magnesium Tablet 400 mg PO DAILY RF: 0 acetaminophen 500 mg Tablet 500 - 1,000 mg PO Q6H PRN (Reason: Pain) RF: 0 vancomycin 125 mg capsule 125 mg PO 4X/DAY Qty: 0 RF: 0 Held aspirin [Aspirin Low Dose] 81 mg Tablet,Delayed Release (Dr/Ec) 81 mg PO DAILY@0800 RF: 0 Hold Instructions: Resume on 02/04/21. warfarin 4 mg tablet 4 mg PO WE RF: 0 Hold Instructions: Resume on 02/04/21. warfarin 4 mg tablet 6 mg PO TUTH RF: 0 Hold Instructions: Resume on 02/04/21. Discontinued loperamide 2 mg Capsule 2 mg PO Q6H PRN (Reason: Diarrhea) RF: 0 Referrals / Follow Up: Dangelo Yadav MD [Primary Care Provider] - Within 1 Month Disposition Disposition (needs filled in before D/C Order can be placed): Nursing Home Facility
--- NOTE | 2021-01-28 14:15 | PCM.DC.SUM ---
Providers Date of Admission: 01/25/21 Primary Care Physician: Dr. Dangelo Yadav MD Reason For Visit: GI BLEED Diagnosis Discharge Diagnosis (1) C. difficile diarrhea: Status: Acute Code(s): A04.72 - Enterocolitis due to Clostridium difficile, not specified as recurrent (2) Acute lower gastrointestinal bleeding: Status: Acute Code(s): K92.2 - Gastrointestinal hemorrhage, unspecified Medications at Discharge Home Medications acetaminophen 500 - 1,000 mg PO Q6H PRN 01/20/21 allopurinol 300 mg PO DAILY 01/20/21 aspirin [Aspirin Low Dose] 81 mg PO DAILY@0800 01/20/21 atorvastatin 40 mg PO QHS@209901/20/21 bumetanide 1 mg PO BID 01/20/21 calcitriol 0.25 mcg PO DAILY 01/20/21 doxazosin 2 mg PO QHS@209901/20/21 ergocalciferol (vitamin D2) 1,250 mcg PO TU 01/20/21 ferrous sulfate 325 mg PO DAILY@1500 01/20/21 guaifenesin [Mucus Relief] 400 mg PO BID 01/20/21 magnesium oxide 400 mg PO DAILY 01/20/21 metoprolol succinate 25 mg PO DAILY 01/20/21 potassium chloride 40 meq PO BID 01/20/21 warfarin 4 mg PO SUMOWEFRSA 01/20/21 warfarin 6 mg PO TUTH 01/20/21 vancomycin 125 mg PO 4X/DAY #0 cap 01/23/21 Hospital Course Operations None Procedures Blood transfusion Summary of Care Provided Minutes Spent on Discharge: 40 Hospital Course: Per HPI: AYAN SANTANA, is a 85 M who [facility] bleed. This is in the setting of C. difficile therefore no intervention can be done. He is not severely anemic and does not have significant vital sign derangements at this time however the [facility] does not want to take him back this evening. His INR is still supratherapeutic at 3.7. He feels fine and denies any abdominal pain. He is having danielle blood and was given a dose of vitamin K IV in the ER. Hospital Course: 1. C. difficile colitis with a lower GI bleed secondary to supratherapeutic INR -We will continue with his p.o. vancomycin as this has been improving his colitis and his diarrhea, vancomycin last dose is 10 PM on 01/31/2021 -He received vitamin K IV on admission, his INR today is 1.3 -Hemoglobin this morning is 8.5, will repeat H&H this afternoon was 9.9. -Consult case management for discharge planning back to SNF -Obviously hold Coumadin and aspirin in the setting of his bleed, can restart on 02/04/2021 if no further bleeding -Given his acute colitis at the moment no intervention is warranted -Continue with PT/OT -Discontinue Imodium -His afternoon hemoglobin came back stable and the nurses state that the amount of bloody stool has decreased significantly with normalization of his INR. His INR was likely elevated secondary just to poor nutritional status and the antibiotics that he had been on. The IV vitamin K corrected his INR from 3.7 on admission down to 1.3 on the day of discharge. He may need further vitamin K at the significant if it continues to rise despite having the Coumadin held. I do recommend restarting Coumadin about a week given his A. fib. I have discussed the risk of stroke with the patient and he expressed understanding of those risks and understands the need to hold his Coumadin. I asked him he feels ready to [facility] to the [facility] and he feels much better. I discussed with him the plan for discharge and he expressed understanding of the risk and benefits of going back to the [facility] and he would like to go back to the [facility] to get started on his rehab. 2. HTN/HLD/A. fib/history of heart failure unknown type -Continue with his home metoprolol -Blood pressure is stable -Hold his aspirin secondary to the GI bleed we will continue to hold his Coumadin as well -Continue with his other cardiac meds including Bumex and Lipitor 3. CKD 3a -Stable -We will monitor renal function 4. BPH -Stable -Continue with doxazosin 5. Gout -Stable -Continue with allopurinol Weight / BMI Weight Weight: 271 lb 13.279 oz Body Mass Index (BMI) 36.8 ABG / Lab / Microbiology Data Result Diagrams: 01/28/21 12:25 01/27/21 07:08 Laboratory: Laboratory Results - last 24 hr 01/28/21 06:08: PT 15.8 H, INR 1.3 01/28/21 06:08: WBC 9.1, RBC 2.80 L, Hgb 8.5 L, Hct 26.2 L, MCV 93.6, MCH 30.4, MCHC 32.4, RDW Std Deviation 62.0 H, RDW Coeff of Trina 18.6 H, Plt Count TNP, Immature Gran % (Auto) 0.900, Neut % (Auto) 82.8 H, Lymph % (Auto) 8.8 L, [place] % (Auto) 5.5, Eos % (Auto) 1.8, Baso % (Auto) 0.2, Absolute Neuts (auto) 7.6, Absolute Lymphs (auto) 0.80 L, Nucleated RBC % 0, Differential Comment SCANNED, Platelet Estimate ADEQUATE 01/28/21 12:25: Hgb 9.9 L, Hct 30.1 L Meaningful Use Info Meaningful Use Diagnoses (Choose all that apply): None applicable Discharge Plan Admission Admit Date/Time: 01/25/21 20:49 Attending Provider: Brandt Presley Primary Care Provider: Dangelo Yadav Discharge Orders/Prescriptions Prescriptions: Continued atorvastatin 40 mg tablet 40 mg PO QHS@2099 RF: 0 potassium chloride 20 mEq tablet,ER particles/crystals 40 meq PO BID RF: 0 ferrous sulfate 325 mg (65 mg iron) Tablet 325 mg PO DAILY@1500 RF: 0 bumetanide 1 mg tablet 1 mg PO BID RF: 0 allopurinol 300 mg tablet 300 mg PO DAILY RF: 0 metoprolol succinate 25 mg tablet extended release 24 hr 25 mg PO DAILY RF: 0 ergocalciferol (vitamin D2) 1,250 mcg (50,000 unit) capsule 1,250 mcg PO TU RF: 0 calcitriol 0.25 mcg capsule 0.25 mcg PO DAILY RF: 0 doxazosin 2 mg tablet 2 mg PO QHS@2100 RF: 0 guaifenesin [Mucus Relief] 400 mg Tablet 400 mg PO BID RF: 0 magnesium oxide 400 mg magnesium Tablet 400 mg PO DAILY RF: 0 acetaminophen 500 mg Tablet 500 - 1,000 mg PO Q6H PRN (Reason: Pain) RF: 0 vancomycin 125 mg capsule 125 mg PO 4X/DAY Qty: 0 RF: 0 Held aspirin [Aspirin Low Dose] 81 mg Tablet,Delayed Release (Dr/Ec) 81 mg PO DAILY@0800 RF: 0 Hold Instructions: Resume on 02/04/21. warfarin 4 mg tablet 4 mg PO SUMOWEFRSA RF: 0 Hold Instructions: Resume on 02/04/21. warfarin 4 mg tablet 6 mg PO TUTH RF: 0 Hold Instructions: Resume on 02/04/21. Discontinued loperamide 2 mg Capsule 2 mg PO Q6H PRN (Reason: Diarrhea) RF: 0 Referrals / Follow Up: Dangelo Yadav MD [Primary Care Provider] - Within 1 Month Disposition Disposition (needs filled in before D/C Order can be placed): Intermediate Facility Charges/Coding Visit Charges OBSV E&M: 21427 Observation care discharge
[2021-01-28 14:27] VITALS: BP 140/65; PULSE 94; RESP 18; TEMP 36.8; O2SAT 97
--- NOTE | 2021-01-28 15:33 | CASEMGMT ---
Social Work Per physician, pt is ready for discharge today. Phone call to [facility] and they are able to accept pt today. SW met with pt and he is agreeable to return to [facility] and would like to use Van transport and is aware of cost. Transportation arranged for 5:30 pickup by [facility]. With pt permission, phone call to pt niijeoma Bethea and updated on discharge plan. She is agreeable with plan. Orders faxed and [facility] notified of pickle pumper time. Plan: [facility], skilled level of care [facility]
== END 2021-01-28 17:45 | disposition skilled nursing facility (03) ==
LOC: ED 19:43 → MS2 21:24
PROVIDERS: Admitting Provider Family Medicine; Emergency Provider Emergency Medicine; Visit Provider Family Medicine
DX: A04.72 Enterocolitis due to Clostridium difficile, not specified as recurrent (principal); I48.91 Unspecified atrial fibrillation; E11.22 Type 2 diabetes mellitus with diabetic chronic kidney disease; I13.0 Hypertensive heart and chronic kidney disease with heart failure and stage 1 through stage 4 chronic kidney disease, or unspecified chronic kidney disease; N18.31 Chronic kidney disease, stage 3a; N40.0 Benign prostatic hyperplasia without lower urinary tract symptoms; I50.9 Heart failure, unspecified; D68.9 Coagulation defect, unspecified; M10.00 Idiopathic gout, unspecified site; G47.30 Sleep apnea, unspecified; Z87.891 Personal history of nicotine dependence; Z79.899 Other long term (current) drug therapy; Z79.01 Long term (current) use of anticoagulants; Z79.82 Long term (current) use of aspirin
CPT/HCPCS: 36415; 36430; 80048; 80053; 85014; 85018; 85025; 85610; 86850; 86900; 86901; 86920; 87426; 96365; 97162; 97166; 97530; 97535; 99218; 99285; P9016; A4216; G0378; J3490

== ENCOUNTER → 2021-07-28 | Outpatient (REF) | payer SELFPAY ==
[2021-07-28 12:25] LABS: International Normalized Ratio 1.5; Prothrombin Time (Protime)PT. 17.8 SECONDS (11.7-14.9)
[2021-07-28 12:42] LABS: Vancomycin, Trough Level 21.3 ug/mL (5.0-15.0)
== END | disposition home or self-care (01) ==
LOC: OLS.WHLTCC 12:00
PROVIDERS: Visit Provider Family Medicine
DX: N18.32 Chronic kidney disease, stage 3b (principal); I48.20 Chronic atrial fibrillation, unspecified; N39.0 Urinary tract infection, site not specified; B95.62 Methicillin resistant Staphylococcus aureus infection as the cause of diseases classified elsewhere
CPT/HCPCS: 36415; 80202; 85610

== ENCOUNTER → 2021-07-30 | Outpatient (REF) | payer SELFPAY ==
[2021-07-31 09:33] LABS: Color, Urine Yellow (Yellow); Glucose, Dipstick Normal (Normal); Ketone-Dipstick Negative (Negative); Leukocyte Esterase-Dipstick 25 /ul (Negative); Nitrite-Dipstick Negative (Negative); Occult Blood-Urine Negative /ul (Negative); Protein-Dipstick 15 mg/dl (Negative); Urine Bilirubin Dipstick Negative (Negative); Urine Clarity Clear (Clear); Urine Urobilinogen Normal (Normal)
== END | disposition home or self-care (01) ==
LOC: OLS.WHLTCC 12:30
PROVIDERS: Visit Provider Family Medicine
DX: N39.0 Urinary tract infection, site not specified (principal); I48.20 Chronic atrial fibrillation, unspecified; N18.32 Chronic kidney disease, stage 3b; B95.62 Methicillin resistant Staphylococcus aureus infection as the cause of diseases classified elsewhere
CPT/HCPCS: 81002; 87077; 87086; 87088; 87186

== ENCOUNTER → 2021-07-31 | Outpatient (REF) | payer SELFPAY ==
[2021-07-31 13:30] LABS: Mean Corpuscular Hgb 30.1 pg (27.0-32.0); Mean Platelet Vol. 13.2 fl (6.2-12.0); Platelet Count 101 K/mm3 (150-450); RBC Distribution Width CV 17.2 % (11.6-14.6); RBC Distribution Width SD 61.6 fl (35.1-43.9); Red Blood Count 2.99 M/mm3 (4.6-6.2)
[2021-07-31 13:48] LABS: Anion Gap 5 (5-15); BUN 39 mg/dL (7-18); BUN/Creat Ratio 21.7 RATIO (10-20); Calcium,Total 9.4 mg/dL (8.5-10.1); Chloride 107 mmol/L (98-107); EST Glomerular Filtration Rate 38 mL/min (>60); Est Glom Filt Rate - Afr Amer 46 mL/min (>60); Glucose 106 mg/dL (74-106); Sodium Level 137 mmol/L (136-145)
[2021-07-31 13:51] LABS: Vancomycin, Trough Level 20.6 ug/mL (5.0-15.0)
== END | disposition home or self-care (01) ==
LOC: OLS.WHLTCC 05:00
PROVIDERS: Visit Provider Family Medicine
DX: E11.22 Type 2 diabetes mellitus with diabetic chronic kidney disease (principal); I48.20 Chronic atrial fibrillation, unspecified; N18.32 Chronic kidney disease, stage 3b; N39.0 Urinary tract infection, site not specified; B95.62 Methicillin resistant Staphylococcus aureus infection as the cause of diseases classified elsewhere
CPT/HCPCS: 36415; 80048; 80202; 85027

== ENCOUNTER → 2021-08-03 | Outpatient (REF) | payer SELFPAY ==
[2021-08-03 09:36] LABS: International Normalized Ratio 2.2; Prothrombin Time (Protime)PT. 23.8 SECONDS (11.7-14.9)
[2021-08-03 09:58] LABS: Vancomycin, Trough Level 16.8 ug/mL (5.0-15.0)
== END | disposition home or self-care (01) ==
LOC: OLS.WHLTCC 05:00
PROVIDERS: Referring Provider Family Medicine; Visit Provider Family Medicine
DX: N18.32 Chronic kidney disease, stage 3b (principal); I48.20 Chronic atrial fibrillation, unspecified; N39.0 Urinary tract infection, site not specified; B95.62 Methicillin resistant Staphylococcus aureus infection as the cause of diseases classified elsewhere
CPT/HCPCS: 36415; 80202; 85610

== ENCOUNTER 2021-10-01 15:04 | Emergency (ER) | payer MEDICARE, SELFPAY ==
[2021-10-01 15:05] VITALS: BP 129/111; PULSE 75; RESP 19; TEMP 36.2; O2SAT 94; BMI 39.3
--- NOTE | 2021-10-01 15:12 | EDS_ITS ---
HPI History of Present Illness Chief Complaint: Complaint Informant: patient and EMS Narrative Narrative: Patient is in assisted living and was sent in for a positive urine culture that was collected 3 days ago that returned MRSA greater than 100,000 CFU's, sen sitivities included with the patient's paperwork. He has no complaints. He has a chronic cough and chronic lower extremity edema that are no worse than usual. He denies any fevers, abdominal pain, problems eating meals today or getting around with his walker which he does at baseline, or foul-smelling or bloody urine, or any other urinary symptoms or low back pain. He had an MRSA UTI in July and was sent to this assisted living facility after that was treated at a local SNF. [facility] Medical History BPH (benign prostatic hyperplasia) Chronic a-fib Chronic kidney insufficiency CKD (chronic kidney disease) Diabetes Enterocolitis due to Clostridium difficile Former smoker Heart failure History of atrial fibrillation History of diabetes mellitus HTN (hypertension) Idiopathic gout Muscle weakness Prostate CA Sleep apnea Home Medications acetaminophen 500 mg tablet 500 - 1,000 mg PO Q6H PRN Pain 01/20/21 [History Last Taken Unknown] allopurinol 300 mg tablet 300 mg PO DAILY GOUT 01/20/21 [History Last Taken 01/20/21] aspirin 81 mg tablet,delayed release (Sandy Low Dose Aspirin) 81 mg PO DAILY@0800 HEALTH 01/20/21 [History Last Taken 01/20/21] atorvastatin 40 mg tablet 40 mg PO QHS@2100 CHOLESTEROL 01/20/21 [History Last Taken 01/19/21] bumetanide 1 mg tablet 1 mg PO BID 01/20/21 [History Last Taken 01/20/21] calcitriol 0.25 mcg capsule 0.25 mcg PO DAILY SUPPLEMENT 01/20/21 [History Last Taken 01/20/21] doxazosin 2 mg tablet 2 mg PO QHS@2100 HEART 01/20/21 [History Last Taken 01/19/21] ergocalciferol (vitamin D2) 1,250 mcg (50,000 unit) capsule 1,250 mcg PO TU SUPPLEMTN 01/20/21 [History Last Taken 01/20/21] ferrous sulfate 325 mg (65 mg iron) tablet 325 mg PO DAILY@1500 SUPPLEMETN 01/20/21 [History Last Taken 01/19/21] guaifenesin 400 mg tablet (Mucus Relief) 400 mg PO BID CONGESTION 01/20/21 [History Last Taken 01/20/21] magnesium oxide 400 mg PO DAILY SUPPLEMENT 01/20/21 [History Last Taken 01/20/21] metoprolol succinate 25 mg tablet,extended release 24 hr 25 mg PO DAILY HEART 01/20/21 [History Last Taken 01/20/21] potassium chloride 20 mEq tablet,extended release(part/cryst) 40 meq PO BID 01/20/21 [History Last Taken 01/20/21] warfarin 4 mg tablet 6 mg PO TUTH BLOOD THINNER 01/20/21 [History Last Taken 01/15/21] vancomycin 125 mg capsule 125 mg PO 4X/DAY #0 caps 01/23/21 [Rx Last Taken 01/20/21] sulfamethoxazole 800 mg-trimethoprim 160 mg tablet 1 tab PO BID #20 TABLETS 0 10/01/21 [Rx Last Taken Unknown] warfarin 4 mg tablet 4 mg PO QODAY BLOOD THINNER #15 tabs 10/01/21 [Rx Last Taken 01/19/21] Allergy/AdvReac Type Severity Reaction Status Date / Time codeine Allergy PT UNSURE Verified 10/01/21 15:09 OF REACTION Family History (Updated 01/25/21 @ 20:[address] Brandt Presley MD) Other Diabetes Heart disease Social History Smoking Status: Former smoker alcohol intake: never substance use type: does not use ROS ROS ED Constitutional Constitutional ED: Denies chills or fever(s) Eyes Eyes: Denies change in vision or diplopia ENT ENT ED: Denies rhinorrhea or sore throat Cardiovascular Cardiovascular: Reports leg edema; Denies chest pain or palpitations Respiratory/Chest Respiratory/Chest: Reports cough; Denies dyspnea Gastrointestinal Gastrointestinal: Denies abdominal pain, diarrhea, nausea or vomiting Genitourinary Genitourinary ED: Denies dysuria, hematuria or urinary frequency Musculoskeletal Musculoskeletal: Denies back pain or neck pain Integumentary Denies abscess or rash Neurologic Neurologic: Denies headache(s), paresthesias or weakness Psychiatric Psychiatric: Denies anxiety or suicidal thoughts Hematologic/Lymphatic Hematologic/Lymphatic: Reports easy bleeding and easy bruising EXAM Physical Exam Const Vital Signs: 10/01/21 15:05 Temperature 97.2 F L Temperature Source Temporal Pulse Rate 75 Respiratory Rate 19 H Blood Pressure 129/111 H Blood Pressure Mean 117 Pulse Ox 94 Oxygen Delivery Method Room Air Positive well nourished and well developed Constitutional Narrative: Well-appearing, conversive in full sentences, pleasant and cooperative General Appearance ED: well developed and NAD HEENT Reports moist mucous membranes normocephalic and atraumatic Eyes PERRL and EOMs intact bilaterally Neck full ROM and supple Resp normal respiratory effort and clear to auscultation bilaterally Cardio regular rate, regular rhythm and no murmurs GI non-tender and non-distended Auscultation: normoactive bowel sounds Palpation: soft Back/Spine no CVA tenderness General Back: other FROM Extremity normal to inspection General Extremety ED: Yes edema; Negative for pulses abnormal or tenderness General Extremity: edema bilateral lower extremity Details: moderate; Negative for pulses abnormal Neuro oriented x3, CN's II-XII intact bilaterally and no sensory deficits noted Sensorium / Orientation: awake and alert Motor Exam: strength 5/5 throughout Skin no rashes or lesions noted and no wounds MDM MDM MDM Narrative Medical decision making narrative: I did some labs, patient's INR is therapeutic at 3.5 given he is on warfarin, he has some renal insufficiency that is similar to baseline, he was over 2 a couple years ago after discussing with Dr. Beck who is covering for his now retired PCP Dr. Yadav. Given that the sensitivities of this MRSA infection show that is sensitive to multiple IV antibiotics including vancomycin which I gave him here, and Bactrim which is an oral drug, he agrees it is reasonable to send him home on that, and we will change his warfarin dosing since this drug is likely to increase his INR. These instructions were given to the assisted living facility on discharge papers in addition to a repeat set of labs after the weekend, and outpatient follow-up. Patient did well here, he is not clinically septic when he meets no criteria for sepsis based on ancillaries, however since the infection does show greater than 100,000 colony-forming units, I do think it is indicated to treat it even though he has a history of C. difficile. He does have a probiotic on his medication list which she should continue to get. At this point prior to discharge, the director of the assisted living facility at which she stays called and I spoke with him at length. He was very nice, and discussed is concerned that Roberto has been dyspneic with exertion especially going to and from meals for the last 4 days or so. It sounds like he sees nephrology, and because of his renal function his Bumex was discontinued recently, and now that he has been dyspneic with exertion they restarted at half dose within the past couple days. He has not been short of breath here and his vital signs of been great. I asked the director if he would be able to take the patient back if I did a chest x-ray and it did not show anything requiring admission, and he said yes he would based on how the patient was doing today. The patient is comfortable with this and actually prefers it, as is the family who I talked to at length as well. Additionally, it appears that the patient's PCP is Dr. Hardy. He made Dr. Beck aware. We try to get ahold of her, but it was after hours and she was not available so I am sending this as a copy to her office. Chest x-ray appears to show scarring in the left lower lobe. Still awaiting radiology interpretation, there are no comparison views from prior visits here. Family states that he did have COVID and a bad case of it as well as a separate incident of pneumonia, unsure if it was left side or not. Clinically his lung sound pretty clear right now which is why I think this is probably scarring. I think his dyspnea with exertion is a separate issue compared with his MRSA urine infection. 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 Lab Data Attestation: I reviewed the patient's lab results. Labs: Laboratory Results - last 24 hr 10/01/21 10/01/21 10/01/21 15:20 15:20 15:20 WBC 7.8 RBC 3.00 L Hgb 9.3 L Hct 29.8 L MCV 99.3 H MCH 31.0 MCHC 31.2 L RDW Std Deviation 64.8 H RDW Coeff of Trina 17.7 H Plt Count TNP MPV TNP Immature Gran % (Auto) 0.400 Neut % (Auto) 84.2 H Lymph % (Auto) 6.3 L [place] % (Auto) 5.9 Eos % (Auto) 2.7 Baso % (Auto) 0.5 Absolute Neuts (auto) 6.5 Absolute Lymphs (auto) 0.49 L Nucleated RBC % 0 Differential Comment SEE COMMENT Platelet Estimate ADEQUATE RBC Morphology N CHROM Anisocytosis RARE Macrocytosis RARE PT 34.7 H INR 3.5 Sodium 139 Potassium 4.3 Chloride 108 H Carbon Dioxide 27.0 Anion Gap 4 L BUN 38 H Creatinine 1.82 H Estim Creat Clear Calc 33.16 Est GFR (MDRD) Af Amer 46 L Est GFR (MDRD) Non-Af 38 L BUN/Creatinine Ratio 20.9 H Glucose 142 H Lactic Acid Calcium 9.1 10/01/21 15:20 WBC RBC Hgb Hct MCV MCH MCHC RDW Std Deviation RDW Coeff of Trina Plt Count MPV Immature Gran % (Auto) Neut % (Auto) Lymph % (Auto) [place] % (Auto) Eos % (Auto) Baso % (Auto) Absolute Neuts (auto) Absolute Lymphs (auto) Nucleated RBC % Differential Comment Platelet Estimate RBC Morphology Anisocytosis Macrocytosis PT INR Sodium Potassium Chloride Carbon Dioxide Anion Gap BUN Creatinine Estim Creat Clear Calc Est GFR (MDRD) Af Amer Est GFR (MDRD) Non-Af BUN/Creatinine Ratio Glucose Lactic Acid 1.4 Calcium Radiography Chest X-Ray - ED: 1 View, Read by ED Physician, No Acute Disease, Chronic Changes (Appears most likely to be chronic scarring left lower lobe; no comparison views available) and No Infiltrates Discharge Plan Triage Chief Complaint: Complaint ED Provider: Edil Kilgore Dx/Rx/DC Orders Clinical Impression: MRSA infection, Chronic renal insufficiency Instructions: MRSA Infec Prescriptions: New sulfamethoxazole-trimethoprim [sulfamethoxazole-trimethoprim] 800-160 mg ta blet 1 tab PO BID Qty: 20 0RF Continued atorvastatin 40 mg tablet 40 mg PO QHS@2100 aspirin [Sandy Low Dose Aspirin] 81 mg Tablet,Delayed Release (Dr/Ec) 81 mg PO DAILY@0800 Hold Instructions: Resume on 02/04/21. potassium chloride 20 mEq tablet,ER particles/crystals 40 meq PO BID ferrous sulfate 325 mg (65 mg iron) Tablet 325 mg PO DAILY@1500 bumetanide 1 mg tablet 1 mg PO BID allopurinol 300 mg tablet 300 mg PO DAILY metoprolol succinate 25 mg tablet extended release 24 hr 25 mg PO DAILY ergocalciferol (vitamin D2) 1,250 mcg (50,000 unit) capsule 1,250 mcg PO TU calcitriol 0.25 mcg capsule 0.25 mcg PO DAILY doxazosin 2 mg tablet 2 mg PO QHS@2100 guaifenesin [Mucus Relief] 400 mg Tablet 400 mg PO BID magnesium oxide 400 mg magnesium Tablet 400 mg PO DAILY acetaminophen 500 mg Tablet 500 - 1,000 mg PO Q6H PRN (Reason: Pain) vancomycin 125 mg capsule 125 mg PO 4X/DAY Qty: 0 0RF Rx Instructions: Continue taking until January 31, 2021. Changed warfarin 4 mg tablet 4 mg PO QODAY Qty: 15 0RF Held warfarin 4 mg tablet 6 mg PO TUTH Hold Instructions: Resume on 10/12/21. while on antibiotic Primary Care Provider: Dangelo Yadav Referrals: Shelby Hardy, [NON-STAFF] - 3-5 Days (also set up repeat labs (PT/INR and BMP) on Tuesday) Activity Restrictions/Additional Instructions: If patient has already had his warfarin today, skip tomorrow's dose, then resume 4 mg tablet once every other day on Tuesday. Repeat the PT/INR and BMP on 10/04/[address] Beck. Disposition Disposition: Home, Self Care
[2021-10-01 15:37] LABS: Absolute Lymphocyte Count 0.49 X10^3/uL (0.83-4.51); Absolute Neutrophil Count 6.5 X10^3/uL (2.0-7.7); Basophil# 0.04 X10^3/uL; Basophil% 0.5 % (0-1); Eosinophil# 0.21 X10^3/uL; Eosinophils% 2.7 % (0-5); Hematocrit 29.8 % (40-54); Hemoglobin 9.3 g/dL (13.0-16.5); Lymphocyte # 0.49 X10^3/ul (0.83-4.51); Lymphocyte % 6.3 % (19-41); Mean Corp Hgb Conc 31.2 g/dL (32-36); Mean Corpuscular Volume 99.3 fL (80-94); Monocyte# 0.46 X10^3/uL; Monocyte% 5.9 % (0-10); NRBC Flagged by Analyzer 0 % (0-5); Neutrophil # 6.53 X10^3/uL (2.7-7.7); Neutrophil % 84.2 % (47-70); POSITIVE COUNT YES; POSITIVE DIFFERENTIAL YES; RBC Distribution Width CV 17.7 % (11.6-14.6); RBC Distribution Width SD 64.8 fl (35.1-43.9); White Blood Count 7.8 K/mm3 (4.4-11.0)
[2021-10-01 15:51] LABS: International Normalized Ratio 3.5; Prothrombin Time (Protime)PT. 34.7 SECONDS (11.7-14.9)
[2021-10-01 15:52] LABS: Differential Indicated SCAN CRITERIA MET
[2021-10-01 16:06] LABS: Lactic Acid 1.4 mmol/L (0.4-1.9)
[2021-10-01 16:23] LABS: Anion Gap 4 (5-15); BUN 38 mg/dL (7-18); BUN/Creat Ratio 20.9 RATIO (10-20); Calcium,Total 9.1 mg/dL (8.5-10.1); Chloride 108 mmol/L (98-107); Creatinine, Serum 1.82 mg/dL (0.70-1.30); EST Glomerular Filtration Rate 38 mL/min (>60); Est Glom Filt Rate - Afr Amer 46 mL/min (>60); Estimated Creatinine Clearance 33.16 ml/min; Glucose 142 mg/dL (74-106); Potassium 4.3 mmol/L (3.5-5.1); Sodium Level 139 mmol/L (136-145)
[2021-10-01 16:27] LABS: Anisocytosis RARE; Macrocytosis RARE; Platelet Estimate ADEQUATE (ADEQ); Red Cell Morphology N CHROM NORMAL (NORM C&C)
--- NOTE | 2021-10-01 18:16 | RAD_ITS ---
STUDY: X-RAY CHEST REASON FOR EXAM: Male, 86 years old. sob TECHNIQUE: 1 view COMPARISON: None. FINDINGS: Please see the impression. RAD/Chest 1 View (Portable) IMPRESSION: Cardiomegaly with mild pulmonary vascular congestion. Small left and trace right-sided pleural effusions. Patchy opacities in the left lower lung, due to atelectasis, scar, or pneumonia. No pneumothorax. Status post median sternotomy. Electronically Signed: Ananth Almeida MD at 19:24 EDT ,
[2021-10-01] MEDS: Smz/Tmp Ds Tablet 1 TABLET PO (19:27)
[2021-10-01 19:41] VITALS: BP 135/84; PULSE 78; RESP 18
== END 2021-10-01 19:44 | disposition home or self-care (01) ==
PROVIDERS: Emergency Provider Emergency Medicine; Visit Provider Emergency Medicine
DX: A49.02 Methicillin resistant Staphylococcus aureus infection, unspecified site (principal); I13.0 Hypertensive heart and chronic kidney disease with heart failure and stage 1 through stage 4 chronic kidney disease, or unspecified chronic kidney disease; I50.9 Heart failure, unspecified; E11.22 Type 2 diabetes mellitus with diabetic chronic kidney disease; N18.9 Chronic kidney disease, unspecified; J18.9 Pneumonia, unspecified organism; Z79.82 Long term (current) use of aspirin; Z79.01 Long term (current) use of anticoagulants; Z79.899 Other long term (current) drug therapy; Z95.1 Presence of aortocoronary bypass graft; Z87.891 Personal history of nicotine dependence
CPT/HCPCS: 71045; 80048; 83605; 85025; 85610; 87040; 96365; 96366; 99284; J7040; A4216